=== PATIENT | female | born 1950 | race Two or more races ===

== ENCOUNTER 2020-03-24 11:33 | Outpatient (REF) | payer MEDICARE, SELFPAY ==
[2020-03-24 12:58] LABS: MANUAL DIFF FLAG NO
[2020-03-24 13:05] LABS: Basophils Percent Auto 0.5 % (0-2); Eosinophils Absolute Auto 0.1 X10*3/uL (0.0-0.4); Eosinophils Percent Auto 1.4 % (0-4); Hematocrit 41.4 % (37-47); Hemoglobin 13.3 g/dl (12.0-16.0); Imm Gran Abs Auto 0.01 X10*3/uL (0.00-0.03); Imm Gran Pct Auto 0.2 % (0.0-0.4); Lymphocytes Absolute Auto 1.7 X10*3/uL (1.2-4.9); Lymphocytes Percent Auto 29.2 % (20-40); Mean Corpuscular HGB Conc 32.1 g/dl (31.0-35.0); Mean Corpuscular Volume 93.2 fL (80-98); Mean Platelet Volume 9.9 fL (9.4-12.3); Monocytes Absolute Auto 0.4 X10*3/uL (0.1-1.2); Monocytes Percent Auto 7.3 % (2-11); Neutrophils Absolute Auto 3.6 X10*3/uL (2.0-8.3); Neutrophils Percent Auto 61.4 % (45-73); Platelet Count 260 X10*3/uL (160-400); Red Blood Count 4.44 X10*6/uL (4.20-5.50); Red Cell Distribution Width 13.7 % (11.0-16.0); White Blood Count 5.8 X10*3/uL (4.8-10.8)
[2020-03-24 14:37] LABS: TSH reflex Free T4 1.46 mIU/mL (0.32-4.0); Vitamin D 25-OH Total 37.1 ng/mL (>30)
== END 2020-03-24 11:34 | disposition home or self-care (01) ==
LOC: HO.LAB 11:33
PROVIDERS: PCP Internal Medicine; Visit Provider Internal Medicine
DX: E55.9 Vitamin D deficiency, unspecified (principal); E03.9 Hypothyroidism, unspecified; D75.89 Other specified diseases of blood and blood-forming organs
CPT/HCPCS: 36415; 82306; 84443; 85025

== ENCOUNTER 2020-08-30 08:05 | Outpatient (REF) | payer MEDICARE, SELFPAY ==
--- NOTE | ~2020-08-30 | MM_ITS ---
EXAMINATION: MM SCREENING DIGITAL BREAST TOMOSYNTHESIS, BILATERAL CLINICAL INFORMATION: Screening. Asymptomatic. COMPARISON: Mammography: August 24, 2019 and studies dating back to March 25, 2013 TECHNIQUE: Digital breast tomosynthesis is performed in both the craniocaudal and mediolateral oblique views along with computer-aided detection (CAD). Synthesized 2D images are generated from the tomosynthesis. FINDINGS: There are scattered areas of fibroglandular density (ACR BI-RADS breast composition Category b). There are no significant masses, abnormal calcifications, or other abnormalities. MM/MM tomosynthesis screening BI IMPRESSION: There are no significant changes from prior study. ASSESSMENT: BI-RADS 1: Negative RECOMMENDATION: Routine annual mammography screening. This patient's information was entered into a reminder system with a target due date for their next mammogram.
== END 2020-08-30 08:06 | disposition home or self-care (01) ==
LOC: HO.MAMMO 08:05
PROVIDERS: PCP Internal Medicine; Visit Provider Internal Medicine
DX: Z12.31 Encounter for screening mammogram for malignant neoplasm of breast (principal)
CPT/HCPCS: 77063; 77067

== ENCOUNTER 2020-11-03 08:43 | Outpatient (REF) | payer MEDICARE, SELFPAY ==
[2020-11-03 10:15] LABS: Alanine Aminotransferase 13 U/L (0-31); Albumin Level 4.4 g/dL (3.5-5.0); Alkaline Phosphatase 61 U/L (39-117); Anion Gap 11 (12-20); Aspartate Amino Transferase 21 U/L (5-31); Bilirubin Total 0.6 mg/dL (0.0-1.0); Blood Urea Nitrogen 21 mg/dL (9-16); Calcium 9.6 mg/dL (8.4-10.2); Carbon Dioxide 30 mmol/L (22-29); Chloride 104 mmol/L (96-108); Cholesterol 203 mg/dL; Estimated Glomerular Filt Rate > 60; Glucose Fasting 82 mg/dL (60-99); HDL Cholesterol 37 mg/dL; LDL Cholesterol Calculated 125 mg/dl; Sodium 141 mmol/L (135-145); Total Protein 6.7 g/dL (6.5-8.0); Triglycerides 208 mg/dL
[2020-11-03 10:20] LABS: Glucose Urine UA NEG (NEG); Leukocyte Esterase Urine NEG (NEG); Nitrite Urine POS (NEG); PH 6.5 (5.0-8.0); UACC Culture Trigger YES; Urine Blood 2+ (NEG); Urine Ketones NEG (NEG); Urine Protein NEG (NEG-TRACE)
[2020-11-03 10:21] LABS: Appearance Urine HAZY; Color Urine YELLOW
[2020-11-03 10:35] LABS: TSH reflex Free T4 1.26 uIU/mL (0.32-4.0)
[2020-11-03 11:15] LABS: Bacteria Urine 4+ /LPF; Squamous Epithelial Cell Urine TRACE /LPF; WBC Urine 0-2 /HPF (0-4)
[2020-11-09 16:26] LABS: Vitamin D 25-OH, D2 <4 ng/mL; Vitamin D 25-OH, D3 40 ng/mL; Vitamin D 25-OH, Total 40 ng/mL (30-100)
== END 2020-11-03 08:44 | disposition home or self-care (01) ==
LOC: HO.LAB 08:43
PROVIDERS: PCP Internal Medicine; Visit Provider Internal Medicine
DX: E78.00 Pure hypercholesterolemia, unspecified (principal); E55.9 Vitamin D deficiency, unspecified; E78.5 Hyperlipidemia, unspecified; E03.9 Hypothyroidism, unspecified; R30.0 Dysuria
CPT/HCPCS: 36415; 80053; 80061; 81001; 81003; 82306; 84443; 87086; 87088; 87186

== ENCOUNTER 2021-03-06 17:08 | Emergency (ER) | payer MEDICARE, SELFPAY ==
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
[2021-03-06 20:30] VITALS: BP 152/73; PULSE 63; RESP 18; TEMP 36.2; O2SAT 100; BMI 24.7
--- NOTE | 2021-03-06 20:32 | PC.NURSE ---
PT CURRENTLY SOAKING HAND IN WARM WATER WITH PEROXIDE PER PROVIDER.
== END 2021-03-06 21:52 | disposition home or self-care (01) ==
PROVIDERS: Emergency Provider Emergency Medicine Emergency Medical Services
DX: B36.9 Superficial mycosis, unspecified (principal); T59.811A Toxic effect of smoke, accidental (unintentional), initial encounter; M79.641 Pain in right hand; T23.201A Burn of second degree of right hand, unspecified site, initial encounter; T31.0 Burns involving less than 10% of body surface; Y92.009 Unspecified place in unspecified non-institutional (private) residence as the place of occurrence of the external cause; X19.XXXA Contact with other heat and hot substances, initial encounter; Y93.9 Activity, unspecified; Y92.9 Unspecified place or not applicable; Y99.9 Unspecified external cause status; Z79.899 Other long term (current) drug therapy
CPT/HCPCS: 99283

== ENCOUNTER 2021-03-12 09:13 | Outpatient (REF) | payer MEDICARE, SELFPAY ==
[2021-03-12 10:36] LABS: Alanine Aminotransferase 12 U/L (0-31); Albumin Level 4.4 g/dL (3.5-5.0); Alkaline Phosphatase 71 U/L (39-117); Anion Gap 10 (12-20); Aspartate Amino Transferase 21 U/L (5-31); Bilirubin Total 0.4 mg/dL (0.0-1.0); Blood Urea Nitrogen 23 mg/dL (9-16); Calcium 8.9 mg/dL (8.4-10.2); Carbon Dioxide 29 mmol/L (22-29); Chloride 106 mmol/L (96-108); Cholesterol 171 mg/dL; Estimated Glomerular Filt Rate > 60; Glucose Fasting 78 mg/dL (60-99); HDL Cholesterol 42 mg/dL; LDL Cholesterol Calculated 115 mg/dl; Potassium 4.1 mmol/L (3.3-5.1); Sodium 141 mmol/L (135-145); Total Protein 6.5 g/dL (6.5-8.0); Triglycerides 71 mg/dL
[2021-03-12 11:18] LABS: Thyroid Stimulating Hormone 2.59 uIU/mL (0.32-4.0)
[2021-03-12 11:31] LABS: TSH reflex Free T4 2.41 uIU/mL (0.32-4.0)
== END 2021-03-12 09:14 | disposition home or self-care (01) ==
LOC: HO.LAB 09:13
PROVIDERS: PCP Internal Medicine; Visit Provider Internal Medicine
DX: K21.9 Gastro-esophageal reflux disease without esophagitis (principal); E03.9 Hypothyroidism, unspecified; E78.5 Hyperlipidemia, unspecified
CPT/HCPCS: 36415; 80053; 80061; 84443

== ENCOUNTER 2021-05-02 15:13 | Outpatient (REF) | payer MEDICARE, SELFPAY ==
--- NOTE | ~2021-05-02 | XR_ITS ---
EXAMINATION: XR KNEE, LEFT CLINICAL INFORMATION: Left knee pain. COMPARISON: None TECHNIQUE: Three views of the left knee. FINDINGS: Mild diffuse osteopenia is noted. Mild asymmetric decreased joint space is noted at the medial compartment consistent with mild osteoarthrosis. Small suprapatellar effusion is noted. The lateral and the patellofemoral compartments are unremarkable. XR/XR knee LT 3V IMPRESSION: Mild osteoarthrosis at the medial compartment of the left knee.
== END 2021-05-02 15:14 | disposition home or self-care (01) ==
LOC: HO.XRAY 15:13
PROVIDERS: PCP Internal Medicine; Visit Provider Internal Medicine
DX: M25.562 Pain in left knee (principal)
CPT/HCPCS: 73562

== ENCOUNTER 2021-07-25 09:23 | Outpatient (REF) | payer MEDICARE, SELFPAY ==
[2021-07-25 09:35] LABS: MANUAL DIFF FLAG NO
[2021-07-25 10:00] LABS: Basophils Percent Auto 0.6 % (0-2); Eosinophils Absolute Auto 0.1 X10*3/uL (0.0-0.4); Eosinophils Percent Auto 1.9 % (0-4); Hematocrit 36.9 % (37.0-47.0); Hemoglobin 11.5 g/dl (12.0-16.0); Imm Gran Abs Auto 0.01 X10*3/uL (0.00-0.03); Imm Gran Pct Auto 0.2 % (0.0-0.4); Lymphocytes Absolute Auto 1.7 X10*3/uL (1.2-4.9); Lymphocytes Percent Auto 31.4 % (20-40); Mean Corpuscular HGB Conc 31.2 g/dl (31.0-35.0); Mean Corpuscular Hemoglobin 27.7 pg (27.0-33.0); Mean Corpuscular Volume 88.9 fL (80.0-98.0); Monocytes Absolute Auto 0.4 X10*3/uL (0.1-1.2); Monocytes Percent Auto 7.8 % (2-11); Neutrophils Absolute Auto 3.1 x10*3/uL (2.0-8.3); Neutrophils Percent Auto 58.1 % (45-73); Platelet Count 239 X10*3/uL (160-400); Red Blood Count 4.15 X10*6/uL (4.20-5.50); White Blood Count 5.3 X10*3/uL (4.8-10.8)
[2021-07-25 10:34] LABS: Alanine Aminotransferase 12 U/L (0-31); Albumin Level 4.3 g/dL (3.5-5.0); Alkaline Phosphatase 62 U/L (39-117); Anion Gap 10 (12-20); Aspartate Amino Transferase 21 U/L (5-31); Bilirubin Total 0.6 mg/dL (0.0-1.0); Blood Urea Nitrogen 22 mg/dL (9-16); Calcium 9.2 mg/dL (8.4-10.2); Carbon Dioxide 31 mmol/L (22-29); Chloride 106 mmol/L (96-108); Cholesterol 207 mg/dL; Estimated Glomerular Filt Rate > 60; Glucose Fasting 86 mg/dL (60-99); HDL Cholesterol 35 mg/dL; LDL Cholesterol Calculated 140 mg/dl; Sodium 143 mmol/L (135-145); Total Protein 6.8 g/dL (6.5-8.0); Triglycerides 161 mg/dL
[2021-07-25 10:56] LABS: Thyroid Stimulating Hormone 3.81 uIU/mL (0.32-4.0)
[2021-07-30 14:16] LABS: Vitamin D 25-OH, D2 <4 ng/mL; Vitamin D 25-OH, D3 38 ng/mL; Vitamin D 25-OH, Total 38 ng/mL (30-100)
== END 2021-07-25 09:24 | disposition home or self-care (01) ==
LOC: HO.LAB 09:23
PROVIDERS: PCP Internal Medicine; Visit Provider Internal Medicine
DX: L98.9 Disorder of the skin and subcutaneous tissue, unspecified (principal); E78.5 Hyperlipidemia, unspecified; E03.9 Hypothyroidism, unspecified; E55.9 Vitamin D deficiency, unspecified
CPT/HCPCS: 36415; 80053; 80061; 82306; 84443; 85025

== ENCOUNTER 2021-08-02 08:14 | Outpatient (REF) | payer MEDICARE, SELFPAY | END 2021-08-02 08:15 | disposition home or self-care (01) | LOC: HO.MAMMO 08:14 | PROVIDERS: PCP Internal Medicine; Visit Provider Internal Medicine | DX: Z13.89 Encounter for screening for other disorder (principal) ==

== ENCOUNTER 2021-08-06 14:44 | Outpatient (REF) | payer MEDICARE, SELFPAY | END 2021-08-06 14:45 | disposition home or self-care (01) | LOC: HO.LAB 14:44 | PROVIDERS: PCP Internal Medicine; Visit Provider Obstetrics & Gynecology | DX: N90.89 Other specified noninflammatory disorders of vulva and perineum (principal); L98.9 Disorder of the skin and subcutaneous tissue, unspecified | CPT/HCPCS: 56605; 88305; 88312; 99212 ==

== ENCOUNTER → 2021-08-20 11:54 | Outpatient (BNVA) | payer MEDICARE, SELFPAY | PROVIDERS: Visit Provider Obstetrics & Gynecology | DX: Z13.89 Encounter for screening for other disorder (principal) | CPT/HCPCS: Q3014 ==

== ENCOUNTER 2021-09-11 09:22 | Outpatient (REF) | payer MEDICARE, SELFPAY ==
--- NOTE | ~2021-09-11 | MM_ITS ---
EXAMINATION: MM SCREENING DIGITAL BREAST TOMOSYNTHESIS, BILATERAL CLINICAL INFORMATION: Screening. Asymptomatic. The lifetime risk of breast cancer based on the Tyrer-Cuzick Model is 2.%. COMPARISON: Mammography: August 30, 2020 and studies dating back to April 13, 2010 TECHNIQUE: Digital breast tomosynthesis is performed in both the craniocaudal and mediolateral oblique views along with computer-aided detection (CAD). Synthesized 2D images are generated from the tomosynthesis. FINDINGS: There are scattered areas of fibroglandular density (ACR BI-RADS breast composition Category b). There are no significant masses, abnormal calcifications, or other abnormalities. MM/MM tomosynthesis screening BI IMPRESSION: There are no significant changes from prior study. ASSESSMENT: BI-RADS 1: Negative RECOMMENDATION: Routine annual mammography screening. This patient's information was entered into a reminder system with a target due date for their next mammogram.
== END 2021-09-11 09:23 | disposition home or self-care (01) ==
LOC: HO.MAMMO 09:22
PROVIDERS: PCP Internal Medicine; Visit Provider Internal Medicine
DX: Z12.31 Encounter for screening mammogram for malignant neoplasm of breast (principal)
CPT/HCPCS: 77063; 77067

== ENCOUNTER 2022-01-29 08:21 | Outpatient (REF) | payer OTHER, SELFPAY ==
--- NOTE | ~2022-01-29 | MM_ITS ---
EXAMINATION: BONE DENSITOMETRY CLINICAL INDICATION: Age-related osteoporosis without current pathological fracture. COMPARISON: Previous BD dated 12/31/2019 and baseline BD dated 09/16/2007. TECHNIQUE: Using a [employer] DXA System (software version: 13.1) manufactured by [employer], dual-energy x-ray absorptiometry was performed of the lumbar spine and left hip. The images are of good technical quality. Summary results are attached. FINDINGS: AP SPINE L1-L4: Current: BMD 0.888 g/cm2, Z-score -0.5, T-score -2.4, osteopenia, 0.3% increase from previous, 4.7% increase from baseline (<5% change is not significant). Prior: BMD 0.885 g/cm2. Baseline: BMD 0.848 g/cm2. LEFT FEMUR, NECK: Current: BMD 0.725 g/cm2, Z-score -0.4, T-score -2.3, osteopenia. Prior: BMD 0.712 g/cm2. Baseline: BMD 0.730 g/cm2. LEFT FEMUR, TOTAL: Current: BMD 0.796 g/cm2, Z-score 0.0, T-score -1.7, osteopenia, 0.0% no change from previous, 1.6% decrease from baseline (<5% change is not significant). Prior: BMD 0.796 g/cm2. Baseline: BMD 0.809 g/cm2. IDENTIFIED RISK FACTORS: Early menopause, secondary osteoporosis, hysterectomy, bilateral oophorectomy, family history (parental hip fracture), osteoporosis. HISTORY OF FRACTURE: None listed. MEDICATIONS: Calcium supplements or multivitamin, vitamin D, bisphosphonate. MM/XR DEXA axial skeleton IMPRESSION: 1. DIAGNOSIS: Osteopenia based on the lowest T-score value of -2.4 in the lumbar spine applying World Health Organization criteria. 2. 10-YEAR FRACTURE RISK PREDICTION, FRAX: Major osteoporotic fracture (clinical spine, forearm, hip or shoulder) 12.8%. Hip fracture 4.0%. 3. Treatment Recommendations: NOF guidelines recommend consideration for treatment in postmenopausal women and men age 50 and older presenting with the following: -A hip or vertebral (clinical or morphometric) fracture. -T-score less than or equal to -2.5 at the femoral neck or spine after appropriate evaluation to exclude secondary causes. -Low bone mass at the hip or spine and a 10-year fracture probability by FRAX of greater than or equal to 3% for hip fracture or greater than or equal to 20% for major osteoporotic fracture based on the [place] adapted WHO algorithm. 4. Other Recommendations: All treatment decisions require clinical judgment and consideration of individual patient factors, including patient preferences, comorbidities, previous drug use, risk factors not captured in the FRAX model (e.g. frailty, falls, vitamin D deficiency, increased bone turnover, interval significant decline in bone density) and possible under or overestimation of fracture risk by FRAX. Additional medical evaluation for secondary cause of low bone mineral density may be appropriate. FUTURE SCAN RECOMMENDATION: People with diagnosed cases of osteoporosis or at high risk for fracture should have regular bone mineral density tests. For patients eligible for Medicare, routine testing is allowed once every 2 years. The testing frequency can be increased to one year for patients who have rapidly progressing disease, those who are receiving or discontinuing medical therapy to restore bone mass, or have additional risk factors.
== END 2022-01-29 08:22 | disposition home or self-care (01) ==
LOC: HO.MAMMO 08:21
PROVIDERS: PCP Internal Medicine; Visit Provider Internal Medicine
DX: M81.0 Age-related osteoporosis without current pathological fracture (principal); Z78.0 Asymptomatic menopausal state; Z90.722 Acquired absence of ovaries, bilateral; Z79.83 Long term (current) use of bisphosphonates
CPT/HCPCS: 77080

== ENCOUNTER 2022-02-14 08:53 | Outpatient (REF) | payer OTHER, SELFPAY ==
--- NOTE | ~2022-02-14 | US_ITS ---
EXAMINATION: US ABDOMEN COMPLETE CLINICAL INFORMATION: Generalized abdominal pain. COMPARISON: CT abdomen and pelvis 01/02/2018. TECHNIQUE: Real-time imaging of the abdominal viscera. FINDINGS: PANCREAS: Normal. ABDOMINAL AORTA: The proximal, mid, and distal segments are normal in caliber. INFERIOR VENA CAVA: Visualized portions are normal. LIVER: Normal. The liver is normal in size. The liver contour is normal. Parenchymal echogenicity is normal. No focal hepatic lesion. There is no intrahepatic biliary duct dilatation seen. GALLBLADDER: Negative sonographic Hollins sign. The gallbladder is physiologically distended without evidence of stones, sludge, polyps, or pericholecystic fluid. COMMON BILE DUCT: Normal in caliber measuring 0.2 cm in diameter. RIGHT KIDNEY: Normal. No hydronephrosis. No renal calculi or focal parenchymal lesions. The kidney measures 8.8 cm in maximum dimension. LEFT KIDNEY: Normal. No hydronephrosis. No renal calculi or focal parenchymal lesions. The kidney measures 8.4 cm in maximum dimension. SPLEEN: Normal. The spleen measures 8.9 cm in maximum dimension. FREE FLUID: None. US/US abdomen complete IMPRESSION: Unremarkable abdominal ultrasound.
== END 2022-02-14 08:54 | disposition home or self-care (01) ==
LOC: HO.US 08:53
PROVIDERS: Visit Provider Internal Medicine
DX: R10.84 Generalized abdominal pain (principal)
CPT/HCPCS: 76700

== ENCOUNTER 2022-04-15 09:08 | Outpatient (REF) | payer OTHER, SELFPAY ==
[2022-04-15 09:22] LABS: MANUAL DIFF FLAG NO
[2022-04-15 10:40] LABS: Appearance Urine Cloudy; Color Urine Yellow; Glucose Urine UA Negative (Negative); Leukocyte Esterase Urine Small (1+) (Negative); Nitrite Urine Positive (Negative); PH 5.5 (5.0-9.0); Specific Gravity - Urine 1.025 (1.005-1.025); UMIC TRIGGER UACC YES; Urine Blood Moderate (2+) (Negative); Urine Ketones Trace mg/dL (Negative); Urine Protein Trace mg/dL (Neg-Trace)
[2022-04-15 10:46] LABS: Bacteria Urine 4+ (None Seen); Hyaline Casts Urine 0-2 /LPF (0-2); UACC Culture Trigger YES
[2022-04-15 10:48] LABS: Basophils Percent Auto 0.8 % (0-2); Eosinophils Absolute Auto 0.1 X10*3/uL (0.0-0.4); Eosinophils Percent Auto 1.4 % (0-4); Hematocrit 37.3 % (37.0-47.0); Hemoglobin 11.5 g/dl (12.0-16.0); Imm Gran Abs Auto 0.01 X10*3/uL (0.00-0.03); Imm Gran Pct Auto 0.2 % (0.0-0.4); Lymphocytes Absolute Auto 2.1 X10*3/uL (1.2-4.9); Lymphocytes Percent Auto 41.7 % (20-40); Mean Corpuscular HGB Conc 30.8 g/dl (31.0-35.0); Mean Corpuscular Hemoglobin 26.3 pg (27.0-33.0); Mean Corpuscular Volume 85.4 fL (80.0-98.0); Mean Platelet Volume 10.3 fL (9.4-12.3); Monocytes Absolute Auto 0.4 X10*3/uL (0.1-1.2); Monocytes Percent Auto 8.1 % (2-11); Neutrophils Absolute Auto 2.4 x10*3/uL (2.0-8.3); Neutrophils Percent Auto 47.8 % (45-73); Platelet Count 240 X10*3/uL (160-400); Red Blood Count 4.37 X10*6/uL (4.20-5.50); Red Cell Distribution Width 17.2 % (11.0-16.0); White Blood Count 5.1 X10*3/uL (4.8-10.8)
[2022-04-15 11:06] LABS: Alanine Aminotransferase 18 U/L (0-31); Albumin Level 4.4 g/dL (3.5-5.0); Alkaline Phosphatase 67 U/L (39-117); Anion Gap 13 (12-20); Aspartate Amino Transferase 24 U/L (5-31); Bilirubin Total 0.7 mg/dL (0.0-1.0); Blood Urea Nitrogen 24 mg/dL (9-16); Calcium 9.3 mg/dL (8.4-10.2); Carbon Dioxide 27 mmol/L (22-29); Chloride 105 mmol/L (96-108); Cholesterol 181 mg/dL; Estimated Glomerular Filt Rate > 60; Glucose Fasting 84 mg/dL (60-99); HDL Cholesterol 37 mg/dL; LDL Cholesterol Calculated 115 mg/dl; Sodium 141 mmol/L (135-145); Total Protein 6.9 g/dL (6.5-8.0); Triglycerides 148 mg/dL
[2022-04-15 11:42] LABS: Thyroid Stimulating Hormone 3.62 uIU/mL (0.32-4.0); Vitamin D 25-OH Total 44.5 ng/mL (>30)
== END 2022-04-15 09:09 | disposition home or self-care (01) ==
LOC: HO.LAB 09:08
PROVIDERS: PCP Internal Medicine; Visit Provider Internal Medicine
DX: D64.9 Anemia, unspecified (principal); E55.9 Vitamin D deficiency, unspecified; E03.9 Hypothyroidism, unspecified; E78.5 Hyperlipidemia, unspecified
CPT/HCPCS: 36415; 80053; 80061; 81001; 82306; 84443; 85025; 87086; 87088; 87186

== ENCOUNTER 2022-09-17 09:25 | Outpatient (REF) | payer OTHER, SELFPAY ==
--- NOTE | ~2022-09-17 | MM_ITS ---
EXAMINATION: MM SCREENING DIGITAL BREAST TOMOSYNTHESIS, BILATERAL CLINICAL INFORMATION: Screening. Asymptomatic. The lifetime risk of breast cancer based on the Tyrer-Cuzick Model is 5.2%. COMPARISON: Mammography: September 11, 2021 and studies dating back to May 10, 2014 TECHNIQUE: Digital breast tomosynthesis is performed in both the craniocaudal and mediolateral oblique views along with computer-aided detection (CAD). Synthesized 2D images are generated from the tomosynthesis. FINDINGS: There are scattered areas of fibroglandular density (ACR BI-RADS breast composition Category b). There are no significant masses, abnormal calcifications, or other abnormalities. MM/MM tomosynthesis screening BI IMPRESSION: No significant changes ASSESSMENT: BI-RADS 1: Negative RECOMMENDATION: Routine annual mammography screening. This patient's information was entered into a reminder system with a target due date for their next mammogram.
== END 2022-09-17 09:26 | disposition home or self-care (01) ==
LOC: HO.MAMMO 09:25
PROVIDERS: PCP Internal Medicine; Visit Provider Internal Medicine
DX: Z12.31 Encounter for screening mammogram for malignant neoplasm of breast (principal)
CPT/HCPCS: 77063; 77067

== ENCOUNTER 2023-03-04 07:29 | Outpatient (REF) | payer OTHER, SELFPAY ==
[2023-03-04 09:01] LABS: Alanine Aminotransferase 13 U/L (0-31); Albumin Level 4.3 g/dL (3.5-5.0); Alkaline Phosphatase 55 U/L (39-117); Anion Gap 11 (12-20); Aspartate Amino Transferase 24 U/L (5-31); Bilirubin Total 0.6 mg/dL (0.0-1.0); Blood Urea Nitrogen 23 mg/dL (9-16); Calcium 9.7 mg/dL (8.4-10.2); Carbon Dioxide 26 mmol/L (22-29); Chloride 108 mmol/L (96-108); Cholesterol 201 mg/dL (<200); Estimated Glomerular Filt Rate > 60; Glucose Fasting 84 mg/dL (60-99); HDL Cholesterol 35 mg/dL (>40); LDL Cholesterol Calculated 134 mg/dL (<100); Potassium 3.9 mmol/L (3.3-5.1); Sodium 141 mmol/L (135-145); Total Protein 6.9 g/dL (6.5-8.0); Triglycerides 162 mg/dL (<150)
[2023-03-04 09:24] LABS: Thyroid Stimulating Hormone 4.37 uIU/mL (0.32-4.0); Vitamin D 25-OH Total 41.9 ng/mL (>30)
== END 2023-03-04 07:30 | disposition home or self-care (01) ==
LOC: HO.LAB 07:29
PROVIDERS: PCP Internal Medicine; Visit Provider Internal Medicine
DX: E03.9 Hypothyroidism, unspecified (principal); E55.9 Vitamin D deficiency, unspecified; E78.5 Hyperlipidemia, unspecified
CPT/HCPCS: 36415; 80053; 80061; 82306; 84443

== ENCOUNTER 2023-03-17 09:42 | Outpatient (AMB) | payer OTHER, SELFPAY ==
--- NOTE | 2023-03-17 09:43 | A.OFFVIS_ITS ---
Intake Vital Signs 03/17/23 09:44 Height 5 ft 2 in Weight 126 lb BMI 23.0 BP 118/62 Blood Pressure Location Lt brachial Position Sitting Pulse 70 Pulse Source Pulse Oximeter Pulse Oximetry (%) 99 Oxygen Delivery Method Room Air Intake Visit Reasons: SWV [id number] Allergies ibuprofen Allergy (Intermediate, Verified 03/17/23 10:10) pruritus nitrofurantoin Allergy (Mild, Verified 03/17/23 10:10) pruritus gabapentin Adverse Reaction (Intermediate, Verified 03/17/23 10:10) loopiness Medication List - Last Reconciled 03/17/23 by PILAR Matamoros amitriptyline 25 mg PO BEDTIME 90 days calcium carbonate 600 mg PO BID 90 days cholecalciferol (vitamin D3) 25 mcg PO DAILY 90 days levothyroxine 50 mcg PO DAILY 90 days omeprazole 20 mg PO DAILY 90 days pravastatin 40 mg PO BEDTIME 90 days triamcinolone acetonide 0.1% 1 appl topical BID 30 days HPI HPI Comments History of Present Illness Details 71-year-old female the history of dyslip idemia GERD and hypothyroidism presents today for subsequent Medicare wellness exam. Patient is up-to-date on mammogram was completed in August 2022, DEXA scan done January 2022, colonoscopy last completed in 2016. Patient sees Dr. Johnson for regular eye exams. Patient up-to-date with recommended immunizations. Patient requesting a new referral to dermatology for skin lesions, referral entered. Patient also reports fatigue and hair loss will follow-up on thyroid function and order CBC in addition to further evaluate for anemia. [place] of care was reviewed with patient patient was provided with a written screening schedule. Healthcare proxy is forms reviewed with patient, patient encouraged to return completed forms to office be scanned into chart. 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 Mother Diabetes Chronic mental illness Alzheimers disease Paternal Aunt Cancer Family/Other FH: mental illness Social History Housing: Apartment Alcohol intake: never Patient Tobacco Use Status: Never used Tobacco e-Cigarette/Vaping Use: Never Used Second Hand Smoke Exposure: No service: No Current occupational status: unemployed Cognitive needs: No Hearing needs: No Vision needs: No Female Reproductive History Menstrual Age of Menarche: 13 Questionnaire Medicare Wellness Checkup [age] What gender do you identify with?: female During the past 4 weeks, how much have you been bothered by emotional problems such as feeling anxious, depressed, irritable, sad or downhearted, and blue?: moderately During the past 4 weeks, how much bodily pain have you generally had?: moderate pain Mini Mental State Exam (MMSE) Orientation What is the (year) (season) (date) (day) (month)?: year, season, date, day and month Score Score: 5 Activity of Daily Living Bathing - sponge bath, tub bath or shower: receives no assistance (gets in/out by self, if usual bathing means Dressing - getting clothes from closets & drawers, including inner/outer garments & fasteners.: gets clothes & gets completely dressed without help Toileting - going to the 'toilet room' for urine/bowel elimination & cleaning self/arranging clothes: goes to toilet room, cleans self, arranges clothes without help Transfer: moves in & out of bed and chair without help (may use support object) Continence: controls urination/bowel movements completely by self Feeding: feeds self without help Total Score: 0 Information obtained from: patient Using telephone: independent Traveling: independent Shopping: independent Preparing meals: independent Housework: independent Taking medicine: independent Managing money: independent PHQ-9 Over the last 2 weeks, how often have you been bothered by any of the following problems? 1. Little interest or pleasure in doing things: several days 2. Feeling down, depressed, or hopeless: several days 3. Trouble falling or staying asleep, or sleeping too much: more than half the days 4. Feeling tired or having little energy: not at all 5. Poor appetite or overeating: not at all 6. Feeling bad about yourself - or that you are a failure or have let yourself or your family down: not at all 7. Trouble concentrating on things, such as reading the newspaper or watching television: not at all 8. Moving or speaking so slowly that other people could have noticed. Or the opposite - being so fidgety or restless that you have been moving around a lot more than usual: not at all 9. Thoughts that you would be better off or of hurting yourself in some way: not at all Total score: 4 Depression Screening Interpretation: Negative 12215 - PHQ-9 Billing: Yes Source: Developed by Drs. Zack Peñaloza, Gita Birch, Paulie Womack and colleagues, with an educational mark from [employer]. Physical Exam Vital Signs: Last Vital Signs Pulse 70 03/17/23 09:44 BP 118/62 03/17/23 09:44 Pulse Ox 99 03/17/23 09:44 Oxygen Delivery Method Room Air 03/17/23 09:44 BMI result Body Mass Index 23.0 Const General: cooperative and no acute distress Orientation/consciousness: patient oriented x3 HEENT Ears: other (whisper test: pass) Neuro General: patient oriented x3 Gait exam (Neuro): Normal gait present Coordination: tandem gait normal and Romberg test negative Assessment & Plan Assessment & Plan (1) Skin lesion: Code(s): L98.9 - Disorder of the skin and subcutaneous tissue, unspecified Plan: Referral entered to dermatology (2) Medicare annual wellness visit, subsequent: Code(s): Z00.00 - Encounter for general adult medical examination without abnormal findings Plan: Follow-up in 1 year for subsequent annual well visit. Orders: Orders Complete Blood Count Auto Diff Today R53.83 - Other fatigue TSH reflex Free T4 4 Weeks E03.9 - Hypothyroidism, unspecified Referrals Dermatology Referral L98.9 - Disorder of the skin and subcutaneous tissue, unspecified Medications: Refilled levothyroxine 50 mcg PO DAILY 90 tabs 3RF 90 days omeprazole 20 mg PO DAILY 90 caps 1RF 90 days pravastatin 40 mg PO BEDTIME 90 tabs 1RF 90 days M81.0 - Age-related osteoporosis without current pathological fracture amitriptyline 25 mg PO BEDTIME 90 tabs 3RF 90 days G47.00 - Insomnia, unspecified Quality Reporting (2019) Depression/Bipolar (159/160/161/177) PHQ-9: Total score: 4 Coding Level of Care Code Medicare Subsequent (G0439) Diagnoses Skin lesion L98.9 Medicare annual wellness visit, subsequent Z00.00 CPT Codes Advance Care Planning - Time spent: 1-15 minutes, not on file ([id number]) Advance Care Planning Forms completed: Health Care Proxy and MOLST Time spent: 1-15 minutes, not on file Actual minutes spent: 2 Did not discuss due to Cultural/Spiritual beliefs: No
[2023-03-17 09:44] VITALS: BP 118/62; PULSE 70; O2SAT 99; BMI 23.0
== END 2023-03-17 10:50 | disposition home or self-care (01) ==
PROVIDERS: Visit Provider Nurse Practitioner Family
DX: L98.9 Disorder of the skin and subcutaneous tissue, unspecified (principal); Z00.00 Encounter for general adult medical examination without abnormal findings
CPT/HCPCS: 1124F; G0439

== ENCOUNTER 2023-09-30 09:59 | Outpatient (REF) | payer OTHER, SELFPAY | END 2023-09-30 10:00 | disposition home or self-care (01) | LOC: HO.MAMMO 09:59 | PROVIDERS: PCP Internal Medicine; Visit Provider Internal Medicine | DX: Z12.31 Encounter for screening mammogram for malignant neoplasm of breast (principal) | CPT/HCPCS: 77063; 77067 ==

== ENCOUNTER → 2023-09-30 10:00 | Outpatient (BNV) | payer OTHER, SELFPAY | PROVIDERS: PCP Internal Medicine; Visit Provider Radiology Diagnostic Radiology | DX: Z12.31 Encounter for screening mammogram for malignant neoplasm of breast (principal) | CPT/HCPCS: 77063; 77067 ==

== ENCOUNTER 2023-10-21 08:36 | Outpatient (REF) | payer OTHER, SELFPAY ==
[2023-10-21 08:53] LABS: MANUAL DIFF FLAG NO
[2023-10-21 09:05] LABS: Basophils Percent Auto 0.6 % (0-2); Eosinophils Absolute Auto 0.1 X10*3/uL (0.0-0.4); Eosinophils Percent Auto 1.9 % (0-4); Hematocrit 36.4 % (37.0-47.0); Hemoglobin 11.8 g/dl (12.0-16.0); Lymphocytes Percent Auto 43.6 % (20-40); Mean Corpuscular HGB Conc 32.4 g/dl (31.0-35.0); Mean Corpuscular Hemoglobin 28.2 pg (27.0-33.0); Mean Corpuscular Volume 87.1 fL (80.0-98.0); Mean Platelet Volume 9.1 fL (9.4-12.3); Monocytes Absolute Auto 0.4 X10*3/uL (0.1-1.2); Neutrophils Absolute Auto 2.1 x10*3/uL (2.0-8.3); Neutrophils Percent Auto 45.9 % (45-73); Platelet Count 224 X10*3/uL (160-400); Red Blood Count 4.18 X10*6/uL (4.20-5.50); Red Cell Distribution Width 20.1 % (11.0-16.0); White Blood Count 4.6 X10*3/uL (4.8-10.8)
[2023-10-21 10:19] LABS: TSH reflex Free T4 1.15 uIU/mL (0.32-4.0)
== END 2023-10-21 08:37 | disposition home or self-care (01) ==
LOC: HO.LAB 08:36
PROVIDERS: PCP Internal Medicine; Visit Provider Nurse Practitioner Family
DX: R53.83 Other fatigue (principal); E03.9 Hypothyroidism, unspecified
CPT/HCPCS: 36415; 84443; 85025

== ENCOUNTER 2023-10-27 15:46 | Outpatient (AMB) | payer OTHER, SELFPAY ==
[2023-10-27 15:49] VITALS: BP 112/60; BMI 21.6
--- NOTE | 2023-10-27 15:49 | MHC.PC.OV ---
Vital Signs 10/27/23 15:49 Height 5 ft 2 in Weight 118 lb BMI 21.6 BP 112/60 Blood Pressure Location Lt brachial Position Sitting Intake Visit Reasons: 3 month f/u Intake Note: Patient here for a 3 month follow up Delivery Specialist Required: No Accompanied by: Daughter Allergies ibuprofen Allergy (Intermediate, Verified 10/27/23 16:12) pruritus nitrofurantoin Allergy (Mild, Verified 10/27/23 16:12) pruritus gabapentin Adverse Reaction (Intermediate, Verified 10/27/23 16:12) loopiness Medication List - Last Reconciled 10/27/23 by Margarita Jimenez MD acetaminophen 1,000 mg (2 x 500 mg) PO Q6H PRN 30 days amitriptyline 25 mg PO BEDTIME 90 days calcium carbonate 600 mg PO BID 90 days cholecalciferol (vitamin D3) 25 mcg PO DAILY 90 days levothyroxine 50 mcg PO DAILY 90 days omeprazole 20 mg PO DAILY 90 days pravastatin 40 mg PO BEDTIME 90 days Tobacco use date assessed: 10/27/23 Fall risk assessment: No Falls in past year Last assessed Fall Risk: 10/27/23 Dental Screening Dental Screen Date: 10/27/23 Did you have a dental visit in the last 12 months?: Yes Did you have a dental problem in the last 6 months where you did not have access to dental care?: No Was dental information given to patient?: Patient has dentist HPI HPI Comments History of Present Illness Details This is a 73-year-old female with mild major depression, dyslipidemia, hypothyroidism and GERD that comes accompanied by daughter for follow-up on her conditions. TSH normal. Hemoglobin mildly low of 11.8. Was diagnosed with anemia in June 2023 in [place] and was taking ferrous sulfate but stopped taking it at the beginning of September. CBC will be repeated. Depression and insomnia has not been well controlled with amitriptyline anymore. I will start her on venlafaxine at bedtime. Lipid panel will be repeated. GERD stable with PPIs. No chest pain or shortness of breath. Some dry cough that has been present for few months. No fever. [facility] Medical History (Updated 10/27/23 @ 16:22 by Margarita Jimenez MD) Left knee pain Medicare annual wellness visit, initial Mild recurrent major depression Dyslipidemia Skin lesion Insomnia Age-related osteoporosis without current pathological fracture Hypovitaminosis D GERD (gastroesophageal reflux disease) Hypothyroidism Surgical History History of lumbar surgery History of total abdominal hysterectomy Family History Father No problems noted. Mother Diabetes Chronic mental illness Alzheimers disease Paternal Aunt Cancer Family/Other FH: mental illness Social History Housing: Apartment Alcohol intake: never Patient Tobacco Use Status: Never used Tobacco e-Cigarette/Vaping Use: Never Used Second Hand Smoke Exposure: No service: No Current occupational status: unemployed Cognitive needs: No Hearing needs: No Vision needs: No Female Reproductive History Menstrual Age of Menarche: 13 Questionnaire PHQ-9 Over the last 2 weeks, how often have you been bothered by any of the following problems? 1. Little interest or pleasure in doing things: not at all 2. Feeling down, depressed, or hopeless: several days 3. Trouble falling or staying asleep, or sleeping too much: more than half the days 4. Feeling tired or having little energy: more than half the days 5. Poor appetite or overeating: not at all 6. Feeling bad about yourself - or that you are a failure or have let yourself or your family down: not at all 7. Trouble concentrating on things, such as reading the newspaper or watching television: several days 8. Moving or speaking so slowly that other people could have noticed. Or the opposite - being so fidgety or restless that you have been moving around a lot more than usual: not at all 9. Thoughts that you would be better off or of hurting yourself in some way: not at all Total score: 6 Source: Developed by Drs. Zack Peñaloza, Gita Birch, Paulie Womack and colleagues, with an educational mark from [employer] Thrive Questionnaire Date Thrive assessed: 10/27/23 I am a: Patient What is your living situation today?: I have a steady place to live Within the past 12 months, did the food you bought not last and you didn't have the money to get more?: Never true Within the past 12 months, did you worry whether your food would run out before you got money to buy more?: Never true Do you have trouble paying for medicines?: No Do you have trouble getting transportation to medical appointments?: No Do you have trouble paying your heating and electricity bill?: No Do you have trouble taking care of your child, family member or friend?: No Do you have trouble with day-to-day activities such as bathing, preparing meals, shopping, managing finances, etc.?: No Are you currently unemployed and looking for a job?: No Are you interested in more education?: No Please select the resources that you would like help with: None Currently or been in a relationship where the following occur: no concerns reported THRIVE Score: 0 AUDIT C Alcohol Use Questionnaire (AUDIT-C) 1. How often do you have a drink containing alcohol?: Never Total Score: 0 FADIA-7 AMB Questionnaire FADIA-7 Date FADIA - 7 assessed: 10/27/23 Feeling nervous, anxious, or on edge: 1 = Several days Not being able to stop or control worryin = Not at all Worrying too much about different things: 1 = Several days Trouble relaxin = Not at all Being so restless that it is hard to sit still: 0 = Not at all Becoming easily annoyed or irritable: 2 = More than half the days Feeling afraid as if something awful might happen: 0 = Not at all Total FADIA-7 score (0-4 normal; 5-9 mild; 10-14 moderate; 15-21 severe): 4 Source: Developed by Drs. Zack Peñaloza, Gita Birch, Paulie Womack and colleagues, with an educational mark from [employer] Review of Systems Const All systems reviewed & are unremarkable except as noted in HPI and below Eyes Reports no additional complaints, Denies change in vision and Denies other visual disturbances Card Denies chest pain at rest, Denies chest pain with activity, Denies edema, Denies irregular heart rhythm, Denies claudication, Denies dyspnea, Denies dyspnea on exertion, Denies orthopnea, Denies paroxysmal nocturnal dyspnea and Denies slow heart rate Resp Reports cough, Denies dyspnea and Denies dyspnea on exertion GI Denies abdominal pain, Denies change in bowel habits, Denies excessive flatus, Denies nausea and Denies vomiting Denies urinary incontinence, Denies urinary hesitancy and Denies urinary urgency Physical exam (Primary Care) Vital Signs: Last Vital Signs BP 112/60 10/27/23 15:49 BMI result Body Mass Index 21.6 Tobacco/Smoking Status: Tobacco use Status Tobacco use date assessed 10/27/23 10/27/23 15:54 Patient Tobacco Use Status Never used Tobacco 10/27/23 15:54 e-Cigarette/Vaping Use Never Used 10/27/23 15:54 PHQ-9: PHQ-9 Score PHQ-9: Total score 6 10/27/23 16:00 Thrive Assessment: Date of Thrive Assessment Date Thrive assessed 10/27/23 10/27/23 16:00 Currently or been in a relationship where the following occur: no concerns reported Resp Effort & Inspection: normal respiratory effort Auscultation: clear to auscultation bilaterally Cardio Jugular venous distension: no JVD Rate: regular rate Rhythm: regular rhythm Heart sounds: S1 normal heart sound present and S2 normal heart sound present Extrem General: Yes full ROM Assessment and Plan Assessment & Plan (1) Mild recurrent major depression: Code(s): F33.0 - Major depressive disorder, recurrent, mild Plan: Discontinue amitriptyline. Start venlafaxine at bedtime. (2) Dyslipidemia: Code(s): E78.5 - Hyperlipidemia, unspecified Plan: Continue statins. Repeat lipid panel. (3) Hypothyroidism: Code(s): E03.9 - Hypothyroidism, unspecified Qualifiers: Hypothyroidism type: unspecified Qualified Code(s): E03.9 - Hypothyroidism, unspecified Plan: Continue levothyroxine. (4) GERD (gastroesophageal reflux disease): Code(s): K21.9 - Gastro-esophageal reflux disease without esophagitis Qualifiers: Esophagitis presence: esophagitis presence not specified Qualified Code(s): K21.9 - Gastro-esophageal reflux disease without esophagitis Plan: Continue PPIs. Orders: Orders Vitamin B12 and Folate 4 Months E53.8 - Deficiency of other specified B group vitamins Vitamin D 25-OH Total 4 Months E55.9 - Vitamin D deficiency, unspecified Lipid Panel 4 Months E78.5 - Hyperlipidemia, unspecified Complete Blood Count Auto Diff 4 Months D64.9 - Anemia, unspecified IRON PROFILE 4 Months D64.9 - Anemia, unspecified Thyroid Stimulating Hormone 4 Months E03.9 - Hypothyroidism, unspecified Comprehensive [place]. Panel Fast 4 Months M54.50 - Low back pain, unspecified XR chest 2V Today R05.9 - Cough, unspecified Referrals Open Access Screening Colonoscopy Referral Z12.11 - Encounter for screening for malignant neoplasm of colon Medications: New loratadine (Allergy Relief (loratadine)) 10 mg PO DAILY 90 days PRN 90 tabs 0RF allergic symptoms venlafaxine 37.5 mg PO BEDTIME 30 days 30 tabs 1RF Discontinued amitriptyline Discontinued Reason: Patient Completed Course 25 mg PO BEDTIME 90 days 90 tabs 3RF G47.00 - Insomnia, unspecified Coding Level of Care Code Est Pt Level 4 (54260) Diagnoses Mild recurrent major depression F33.0 Dyslipidemia E78.5 Hypothyroidism, unspecified type E03.9 Hypothyroidism type: unspecified Gastroesophageal reflux disease, unspecified whether esophagitis present K21.9 Esophagitis presence: esophagitis presence not specified Time Spent (min) 23
== END 2023-10-27 16:24 | disposition home or self-care (01) ==
PROVIDERS: PCP Internal Medicine; Visit Provider Internal Medicine
DX: F33.0 Major depressive disorder, recurrent, mild (principal); E78.5 Hyperlipidemia, unspecified; E03.9 Hypothyroidism, unspecified; K21.9 Gastro-esophageal reflux disease without esophagitis
CPT/HCPCS: 99214

== ENCOUNTER 2023-10-27 16:30 | Outpatient (REF) | payer OTHER, SELFPAY ==
--- NOTE | ~2023-10-27 | XR_ITS ---
EXAMINATION: XR CHEST CLINICAL INFORMATION: Cough, unspecified COMPARISON: Chest 01/02/2018 TECHNIQUE: 2 views of the chest were obtained. FINDINGS: No significant abnormality is noted involving the heart, lungs, mediastinum or soft tissues. Mild degenerative changes of the thoracic spine. XR/XR chest 2V IMPRESSION: No acute disease.
== END 2023-10-27 16:31 | disposition home or self-care (01) ==
LOC: HO.XRAY 16:30
PROVIDERS: PCP Internal Medicine; Visit Provider Internal Medicine
DX: R05.9 Cough, unspecified (principal)
CPT/HCPCS: 71046

== ENCOUNTER 2024-03-29 08:56 | Outpatient (REF) | payer OTHER, SELFPAY ==
[2024-03-29 09:06] LABS: MANUAL DIFF FLAG NO
[2024-03-29 09:36] LABS: Basophils Percent Auto 0.6 % (0-2); Eosinophils Absolute Auto 0.1 X10*3/uL (0.0-0.4); Eosinophils Percent Auto 2.5 % (0-4); Hemoglobin 12.7 g/dl (12.0-16.0); Imm Gran Abs Auto 0.01 X10*3/uL (0.00-0.03); Imm Gran Pct Auto 0.2 % (0.0-0.4); Lymphocytes Absolute Auto 1.7 X10*3/uL (1.2-4.9); Lymphocytes Percent Auto 33.2 % (20-40); Mean Corpuscular HGB Conc 32.6 g/dl (31.0-35.0); Mean Corpuscular Hemoglobin 29.7 pg (27.0-33.0); Mean Corpuscular Volume 91.3 fL (80.0-98.0); Mean Platelet Volume 9.2 fL (9.4-12.3); Monocytes Absolute Auto 0.4 X10*3/uL (0.1-1.2); Monocytes Percent Auto 7.6 % (2-11); Neutrophils Absolute Auto 2.9 x10*3/uL (2.0-8.3); Neutrophils Percent Auto 55.9 % (45-73); Platelet Count 256 X10*3/uL (160-400); Red Blood Count 4.27 X10*6/uL (4.20-5.50); Red Cell Distribution Width 14.8 % (11.0-16.0); White Blood Count 5.1 X10*3/uL (4.8-10.8)
[2024-03-29 10:10] LABS: Alanine Aminotransferase 16 U/L (0-31); Albumin Level 4.5 g/dL (3.5-5.0); Alkaline Phosphatase 58 U/L (39-117); Anion Gap 12 (12-20); Aspartate Amino Transferase 29 U/L (5-31); Bilirubin Total 0.6 mg/dL (0.0-1.0); Blood Urea Nitrogen 20 mg/dL (9-16); Calcium 9.8 mg/dL (8.4-10.2); Carbon Dioxide 28 mmol/L (22-29); Chloride 106 mmol/L (96-108); Cholesterol 188 mg/dL (<200); Estimated Glomerular Filt Rate > 60; Glucose Fasting 88 mg/dL (60-99); HDL Cholesterol 44 mg/dL (>40); Iron 56 mcg/dL (30-160); LDL Cholesterol Calculated 121 mg/dL (<100); Percent Iron Saturation 17 % (15-50); Potassium 3.8 mmol/L (3.3-5.1); Sodium 142 mmol/L (135-145); Total Iron Binding Capacity 336 mcg/dL (228-428); Total Protein 7.5 g/dL (6.5-8.0); Triglycerides 116 mg/dL (<150); Unsaturated Iron Binding 280 ug/dL
[2024-03-29 10:28] LABS: Thyroid Stimulating Hormone 2.84 uIU/mL (0.32-4.0); Vitamin D 25-OH Total 55.5 ng/mL (>30)
[2024-03-29 11:04] LABS: Vitamin B12 672 pg/mL (200-900)
== END 2024-03-29 08:57 | disposition home or self-care (01) ==
LOC: HO.LAB 08:56
PROVIDERS: PCP Internal Medicine; Visit Provider Internal Medicine
DX: E53.8 Deficiency of other specified B group vitamins (principal); E78.5 Hyperlipidemia, unspecified; M54.50 Low back pain, unspecified; E55.9 Vitamin D deficiency, unspecified; D64.9 Anemia, unspecified; E03.9 Hypothyroidism, unspecified
CPT/HCPCS: 36415; 80053; 80061; 82306; 82607; 82746; 83540; 84443; 85025

== ENCOUNTER 2024-04-05 09:03 | Outpatient (AMB) | payer OTHER, SELFPAY ==
--- NOTE | 2024-04-05 09:06 | A.OFFPC_ITS ---
Vital Signs 04/05/24 09:14 Height 5 ft 2 in Weight 119 lb BMI 21.8 BP 116/70 Blood Pressure Location Lt brachial Position Sitting Intake Visit Reasons: annual exam Intake Note: Patient here for an Annual Physical Exam Jacker Feeder Required: No Accompanied by: Self / Same As Patient Allergies ibuprofen Allergy (Intermediate, Verified 04/05/24 09:24) pruritus nitrofurantoin Allergy (Mild, Verified 04/05/24 09:24) pruritus gabapentin Adverse Reaction (Intermediate, Verified 04/05/24 09:24) loopiness Medication List - Last Reconciled 04/05/24 by Margarita Jimenez MD acetaminophen 1,000 mg (2 x 500 mg) PO Q6H PRN 30 days calcium carbonate 600 mg PO BID 90 days cholecalciferol (vitamin D3) 25 mcg PO DAILY 90 days levothyroxine 50 mcg PO DAILY 90 days loratadine (Allergy Relief (loratadine)) 10 mg PO DAILY PRN 90 days omeprazole 20 mg PO DAILY 90 days pravastatin 40 mg PO BEDTIME 90 days venlafaxine 37.5 mg PO BEDTIME 30 days Tobacco use date assessed: 10/27/23 Fall risk assessment: 1 Fall in past year Last assessed Fall Risk: 04/05/24 Dental Screening Dental Screen Date: 10/27/23 HPI HPI Comments History of Present Illness Details This is a 73-year-old female with mild recurrent major depression that comes for her physical exam. Depression stable with amitriptyline at bedtime. I will discontinue venlafaxine because it gives her abdominal pain. Mammogram done 2023 was normal. DEXA scan done 2021 and will be repeated this year. Colonoscopy done 2016 and next colonoscopy should be 2026. Flu vaccine was done last month at the pharmacy. No chest pain or shortness on breath. Complains of left shoulder pain and bilateral hip pain that has been bothering her for over a month. Walks with no assistive device. [facility] Medical History Left knee pain Medicare annual wellness visit, initial Mild recurrent major depression Dyslipidemia Skin lesion Insomnia Age-related osteoporosis without current pathological fracture Hypovitaminosis D GERD (gastroesophageal reflux disease) Hypothyroidism Surgical History History of lumbar surgery History of total abdominal hysterectomy Family History (Updated 04/05/24 @ 09:29 by Margarita Jimenez MD) Father No problems noted. Mother Diabetes Chronic mental illness Alzheimers disease Paternal Aunt Cancer Family/Other FH: mental illness Social History (Updated 04/05/24 @ 09:29 by Margarita Jimenez MD) Housing: Apartment Alcohol intake: current Alcohol intake frequency: a few times a month Alcohol type: wine Patient Tobacco Use Status: Never used Tobacco e-Cigarette/Vaping Use: Never Used Second Hand Smoke Exposure: No service: No Current occupational status: unemployed Cognitive needs: No Hearing needs: No Vision needs: No Female Reproductive History Menstrual Age of Menarche: 13 Questionnaire PHQ-9 Over the last 2 weeks, how often have you been bothered by any of the following problems? 1. Little interest or pleasure in doing things: several days 2. Feeling down, depressed, or hopeless: not at all 3. Trouble falling or staying asleep, or sleeping too much: not at all 4. Feeling tired or having little energy: several days 5. Poor appetite or overeating: not at all 6. Feeling bad about yourself - or that you are a failure or have let yourself or your family down: several days 7. Trouble concentrating on things, such as reading the newspaper or watching television: not at all 8. Moving or speaking so slowly that other people could have noticed. Or the opposite - being so fidgety or restless that you have been moving around a lot more than usual: not at all 9. Thoughts that you would be better off or of hurting yourself in some way: not at all Total score: 3 Depression Screening Interpretation: Positive Depression Screening Follow-up: Existing condition, In treatment and Follow-up Visit Requested Depression Screening Done: Yes 90087 - PHQ-9 Billing: Yes Source: Developed by Drs. Zack Peñaloza, Gita Birch, Paulie Womack and colleagues, with an educational mark from [employer] Thrive Questionnaire Date Thrive assessed: 10/27/23 I am a: Patient What is your living situation today?: I have a steady place to live Within the past 12 months, did the food you bought not last and you didn't have the money to get more?: Sometimes True Within the past 12 months, did you worry whether your food would run out before you got money to buy more?: Sometimes True Do you have trouble paying for medicines?: I choose not to answer this question Do you have trouble getting transportation to medical appointments?: No Do you have trouble paying your heating and electricity bill?: No Do you have trouble taking care of your child, family member or friend?: No Do you have trouble with day-to-day activities such as bathing, preparing meals, shopping, managing finances, etc.?: No Are you currently unemployed and looking for a job?: I choose not to answer this question Are you interested in more education?: Yes Please select the resources that you would like help with: None Currently or been in a relationship where the following occur: No concerns reported THRIVE Score: 2 AUDIT C Alcohol Use Questionnaire (AUDIT-C) 1. How often do you have a drink containing alcohol?: 2-4 times a month 2. How many drinks containing alcohol do you have on a typical day when you are drinking?: 1 or 2 3. How often do you have six or more drinks on one occasion?: Never Total Score: 2 Score Reviewed/Action Taken: No FADIA-7 AMB Questionnaire FADIA-7 Date FADIA - 7 assessed: 10/27/23 Feeling nervous, anxious, or on edge: 1 = Several days Not being able to stop or control worryin = Several days Worrying too much about different things: 1 = Several days Trouble relaxin = Not at all Being so restless that it is hard to sit still: 0 = Not at all Becoming easily annoyed or irritable: 1 = Several days Feeling afraid as if something awful might happen: 1 = Several days Total FADIA-7 score (0-4 normal; 5-9 mild; 10-14 moderate; 15-21 severe): 5 Source: Developed by Drs. Zack Peñaloza, Gita Birch, Paulie Womack and colleagues, with an educational mark from [employer]. FADIA-7 Assessment Billing FADIA-7 Assessment Tool: FADIA-7 Assessment 04692 Review of Systems Const All systems reviewed & are unremarkable except as noted in HPI and below Card Denies chest pain at rest, Denies chest pain with activity, Denies edema, Denies irregular heart rhythm, Denies claudication, Denies dyspnea, Denies dyspnea on exertion, Denies orthopnea, Denies paroxysmal nocturnal dyspnea and Denies slow heart rate Resp Denies cough, Denies dyspnea and Denies dyspnea on exertion GI Denies abdominal pain, Denies change in bowel habits, Denies excessive flatus, Denies nausea and Denies vomiting Denies urinary incontinence, Denies urinary hesitancy and Denies urinary urgency Musc Reports back pain and Reports arthralgias Neuro Denies lack of coordination Physical exam (Primary Care) Vital Signs: Last Vital Signs BP 116/70 04/05/24 09:14 BMI result Body Mass Index 21.8 Tobacco/Smoking Status: Tobacco use Status Tobacco use date assessed 10/27/23 04/05/24 09:09 Patient Tobacco Use Status Never used Tobacco 04/05/24 09:29 e-Cigarette/Vaping Use Never Used 04/05/24 09:29 PHQ-9: PHQ-9 Score PHQ-9: Total score 3 04/05/24 09:29 Depression Screening Interpretation: Positive Depression Screening Follow-up: Existing condition, In treatment and Follow-up Visit Requested Thrive Assessment: Date of Thrive Assessment Date Thrive assessed 10/27/23 04/05/24 09:09 Currently or been in a relationship where the following occur: No concerns reported [facility] Head: Yes normal to inspection, Yes normocephalic and Yes atraumatic Ears: external ears normal Eyes General: appearance normal, both eyes and all related structures Eyelids: Yes eyelids normal Conjunctivae: conjunctivae normal Neck Neck: Yes normal visual inspection and Yes supple Resp Effort & Inspection: normal respiratory effort Auscultation: clear to auscultation bilaterally Cardio Jugular venous distension: no JVD Rate: regular rate Rhythm: regular rhythm Heart sounds: S1 normal heart sound present and S2 normal heart sound present GI Inspection: Yes normal to inspection Palpation (GI): Soft to palpation and nontender Auscultation: normal bowel sounds Skin General skin exam: no rashes or lesions noted Neuro General: no focal motor deficits Extrem General: Yes full ROM Psych Appearance: grossly normal Coding Level of Care Code Est Pt Level 4 (25763) Est Pt Prev Care >65y(26743) Diagnoses Physical exam Z00.00 Chronic left shoulder pain M25.512; G89.29 Chronicity: chronic Right hip pain M25.551 Left hip pain M25.552 Mild recurrent major depression F33.0 Additional Codes FADIA-7 Assessment Billing - FADIA-7 Assessment Tool: FADIA-7 Assessment 89438 ([id number]) Time Spent (min) 35 Assessment & Plan Assessment & Plan (1) Physical exam: Code(s): Z00.00 - Encounter for general adult medical examination without abnormal findings Category: Medical Plan: Repeat in a year. (2) Left shoulder pain: Code(s): M25.512 - Pain in left shoulder Category: Medical Qualifiers: Chronicity: chronic Qualified Code(s): M25.512 - Pain in left shoulder; G89.29 - Other chronic pain Plan: X-ray ordered. (3) Right hip pain: Code(s): M25.551 - Pain in right hip Category: Medical Plan: X-ray ordered. (4) Left hip pain: Code(s): M25.552 - Pain in left hip Category: Medical Plan: X-ray ordered. (5) Mild recurrent major depression: Code(s): F33.0 - Major depressive disorder, recurrent, mild Category: Medical Plan: Discontinue venlafaxine. Continue amitriptyline. Follow-up visit requested. Orders: Orders XR DEXA axial skeleton Today Z78.0 - Asymptomatic menopausal state XR hip LT min 2V Today M25.552 - Pain in left hip XR shoulder LT min 2V Today M25.512 - Pain in left shoulder XR hip RT min 2V Today M25.551 - Pain in right hip Medications: New amitriptyline 25 mg PO BEDTIME 90 tabs 3RF 90 days Refilled acetaminophen 1,000 mg (2 x 500 mg) PO Q6H PRN 240 caps 0RF fever 30 days loratadine (Allergy Relief (loratadine)) 10 mg PO DAILY PRN 90 tabs 0RF allergic symptoms 90 days Discontinued venlafaxine Discontinued Reason: Patient Completed Course 37.5 mg PO BEDTIME 30 days 30 tabs 1RF
[2024-04-05 09:14] VITALS: BP 116/70; BMI 21.8
== END 2024-04-05 09:38 | disposition home or self-care (01) ==
PROVIDERS: PCP Internal Medicine; Visit Provider Internal Medicine
DX: Z00.00 Encounter for general adult medical examination without abnormal findings (principal); M25.512 Pain in left shoulder; F33.0 Major depressive disorder, recurrent, mild; G89.29 Other chronic pain; M25.551 Pain in right hip; M25.552 Pain in left hip

== ENCOUNTER 2024-04-05 09:03 | Outpatient (REF) | payer OTHER, SELFPAY ==
--- NOTE | ~2024-04-05 | XR_ITS ---
EXAMINATION: XR SHOULDER, LEFT CLINICAL INFORMATION: Pain in the left shoulder COMPARISON: None available. TECHNIQUE: AP external rotation, Grashey, scapular Y, and axillary views of the left shoulder. FINDINGS: Mild osteoarthritis of the glenohumeral joint with small marginal osteophytes along the inferior aspect of the humeral head. No joint space narrowing. Acromial clavicular joint: Normal. Surrounding bones soft tissues unremarkable. XR/XR shoulder LT min 2V IMPRESSION: Mild osteoarthritis of the glenohumeral joint. Electronically signed by: Jones Coronado MD 04/11/2024 12:16 PM EDT
--- NOTE | ~2024-04-05 | XR_ITS ---
EXAMINATION: XR HIP RIGHT 2 VIEWS CLINICAL INFORMATION: Pain in right hip M25.551. COMPARISON: XR Both hip includes pelvis 04/01/2013 TECHNIQUE: Two views of the right hip. FINDINGS: No fracture. Alignment is anatomic. Hip joint space is maintained. Soft tissues are unremarkable. XR/XR hip RT min 2V IMPRESSION: Normal right hip. Electronically signed by: Jones Coronado MD 06/08/2024 08:54 AM [facility]
--- NOTE | ~2024-04-05 | XR_ITS ---
EXAMINATION: XR HIP LEFT 2 VIEWS CLINICAL INFORMATION: Pain in left hip M25.552. COMPARISON: XR Hip both includes pelvis 04/01/2013 TECHNIQUE: Two views of the left hip. FINDINGS: No fracture. Alignment is anatomic. Hip joint space is maintained. Soft tissues are unremarkable. XR/XR hip LT min 2V IMPRESSION: Normal left hip. Electronically signed by: Jones Coronado MD 06/08/2024 08:54 AM [facility]
== END 2024-04-05 09:04 | disposition home or self-care (01) ==
LOC: HO.XRAY 09:03
PROVIDERS: PCP Internal Medicine; Visit Provider Internal Medicine
DX: Z00.00 Encounter for general adult medical examination without abnormal findings (principal); M25.512 Pain in left shoulder; M25.551 Pain in right hip; M25.552 Pain in left hip; G89.29 Other chronic pain; F33.0 Major depressive disorder, recurrent, mild
CPT/HCPCS: 73030; 73502; 96127; 99212; 99397

== ENCOUNTER 2024-05-11 11:19 | Outpatient (REF) | payer OTHER, SELFPAY ==
--- NOTE | ~2024-05-11 | MM_ITS ---
EXAMINATION: BONE DENSITOMETRY CLINICAL INDICATION: Menopause. COMPARISON: Previous BD dated 02/08/2022 and baseline BD dated 09/16/2007. TECHNIQUE: Using a [employer] DXA System (software version: 13.1) manufactured by [employer], dual-energy x-ray absorptiometry was performed of the lumbar spine and left hip. The images are of good technical quality. Summary results are attached. FINDINGS: LEFT FEMUR, NECK: Current: BMD 0.706 g/cm2, Z-score -0.3, T-score -2.4, osteopenia. Prior: BMD 0.725 g/cm2. Baseline: BMD 0.730 g/cm2. LEFT FEMUR, TOTAL: Current: BMD 0.807 g/cm2, Z-score 0.3, T-score -1.6, osteopenia, 1.4% increase from previous, 0.2% decrease from baseline (<5% change is not significant). Prior: BMD 0.796 g/cm2. Baseline: BMD 0.809 g/cm2. AP SPINE L1-L4: Current: BMD 0.932 g/cm2, Z-score 0.0, T-score -2.1, osteopenia, 5.0% increase from previous, 9.9% increase from baseline (<5% change is not significant). Prior: BMD 0.888 g/cm2. Baseline: BMD 0.848 g/cm2. IDENTIFIED RISK FACTORS: Early menopause, hysterectomy, osteoporosis, secondary osteoporosis. HISTORY OF FRACTURE: None listed. MEDICATIONS: Calcium or multivitamin. Vitamin D, bisphosphonate. MM/XR DEXA axial skeleton IMPRESSION: 1. DIAGNOSIS: Osteopenia based on the lowest T-score value of -2.4 in the femoral neck applying World Health Organization criteria. 2. 10-YEAR FRACTURE RISK PREDICTION, FRAX: Not performed in this patient on estrogen or bone building treatments. 3. Treatment Recommendations: NOF guidelines recommend consideration for treatment in postmenopausal women and men age 50 and older presenting with the following: -A hip or vertebral (clinical or morphometric) fracture. -T-score less than or equal to -2.5 at the femoral neck or spine after appropriate evaluation to exclude secondary causes. -Low bone mass at the hip or spine and a 10-year fracture probability by FRAX of greater than or equal to 3% for hip fracture or greater than or equal to 20% for major osteoporotic fracture based on the [place] adapted WHO algorithm. 4. Other Recommendations: All treatment decisions require clinical judgment and consideration of individual patient factors, including patient preferences, comorbidities, previous drug use, risk factors not captured in the FRAX model (e.g. frailty, falls, vitamin D deficiency, increased bone turnover, interval significant decline in bone density) and possible under or overestimation of fracture risk by FRAX. Additional medical evaluation for secondary cause of low bone mineral density may be appropriate. FUTURE SCAN RECOMMENDATION: People with diagnosed cases of osteoporosis or at high risk for fracture should have regular bone mineral density tests. For patients eligible for Medicare, routine testing is allowed once every 2 years. The testing frequency can be increased to one year for patients who have rapidly progressing disease, those who are receiving or discontinuing medical therapy to restore bone mass, or have additional risk factors. Electronically signed by: Charissa Calle MD 05/12/2024 12:26 PM LISHA CAN
== END 2024-05-11 11:20 | disposition home or self-care (01) ==
LOC: HO.MAMMO 11:19
PROVIDERS: PCP Internal Medicine; Visit Provider Internal Medicine
DX: Z13.820 Encounter for screening for osteoporosis (principal); Z78.0 Asymptomatic menopausal state; Z90.710 Acquired absence of both cervix and uterus; M85.89 Other specified disorders of bone density and structure, multiple sites
CPT/HCPCS: 77080

== ENCOUNTER 2024-09-29 09:35 | Outpatient (REF) | payer OTHER, SELFPAY ==
[2024-09-29 09:48] LABS: MANUAL DIFF FLAG NO
[2024-09-29 10:28] LABS: Basophils Percent Auto 0.5 % (0-2); Eosinophils Absolute Auto 0.2 X10*3/uL (0.0-0.4); Eosinophils Percent Auto 2.5 % (0-4); Hematocrit 39.1 % (37.0-47.0); Hemoglobin 12.4 g/dl (12.0-16.0); Imm Gran Abs Auto 0.02 X10*3/uL (0.00-0.03); Imm Gran Pct Auto 0.3 % (0.0-0.4); Lymphocytes Absolute Auto 2.1 X10*3/uL (1.2-4.9); Lymphocytes Percent Auto 34.7 % (20-40); Mean Corpuscular HGB Conc 31.7 g/dl (31.0-35.0); Mean Corpuscular Hemoglobin 28.5 pg (27.0-33.0); Mean Corpuscular Volume 89.9 fL (80.0-98.0); Mean Platelet Volume 9.8 fL (9.4-12.3); Monocytes Absolute Auto 0.5 X10*3/uL (0.1-1.2); Monocytes Percent Auto 7.6 % (2-11); Neutrophils Absolute Auto 3.3 x10*3/uL (2.0-8.3); Neutrophils Percent Auto 54.4 % (45-73); Platelet Count 273 X10*3/uL (160-400); Red Blood Count 4.35 X10*6/uL (4.20-5.50); Red Cell Distribution Width 14.7 % (11.0-16.0); White Blood Count 6.1 X10*3/uL (4.8-10.8)
[2024-09-29 11:27] LABS: Alanine Aminotransferase 14 U/L (0-31); Albumin Level 4.2 g/dL (3.5-5.0); Alkaline Phosphatase 72 U/L (39-117); Anion Gap 10 (12-20); Aspartate Amino Transferase 32 U/L (5-31); Bilirubin Total 0.6 mg/dL (0.0-1.0); Blood Urea Nitrogen 29 mg/dL (9-16); Calcium 9.6 mg/dL (8.4-10.2); Carbon Dioxide 27 mmol/L (22-29); Chloride 108 mmol/L (96-108); Cholesterol 148 mg/dL (<200); Estimated Glomerular Filt Rate > 60; Glucose Fasting 86 mg/dL (60-99); HDL Cholesterol 41 mg/dL (>40); LDL Cholesterol Calculated 80 mg/dL (<100); Potassium 3.8 mmol/L (3.3-5.1); Sodium 141 mmol/L (135-145); Total Protein 7.1 g/dL (6.5-8.0); Triglycerides 139 mg/dL (<150)
[2024-09-29 11:49] LABS: Thyroid Stimulating Hormone 2.13 uIU/mL (0.32-4.0); Vitamin D 25-OH Total 54.2 ng/mL (>30)
== END 2024-09-29 09:36 | disposition home or self-care (01) ==
LOC: HO.LAB 09:35
PROVIDERS: PCP Internal Medicine; Visit Provider Internal Medicine
DX: L98.9 Disorder of the skin and subcutaneous tissue, unspecified (principal); E03.9 Hypothyroidism, unspecified; E78.5 Hyperlipidemia, unspecified; E55.9 Vitamin D deficiency, unspecified
CPT/HCPCS: 36415; 80053; 80061; 82306; 84443; 85025

== ENCOUNTER 2024-10-05 09:55 | Outpatient (REF) | payer OTHER, SELFPAY ==
--- OUTSIDE RECORDS SUMMARY | 2024-10-05 11:29 | XMS_ITS | Encounter Summary ---
Author Organization [employer] [facility] Address [address] [place] [address] Care Team Providers Care Metal Milling Machine Operator Name Role Phone Unavailable Primary Care Provider [...]
--- OUTSIDE RECORDS SUMMARY | 2024-10-05 11:29 | XMS_ITS | Encounter Summary ---
Author Organization [employer] [facility] Address [address] [place] [address] Care Team Providers Care Bulk Station Agent Name Role Phone Unavailable Primary Care Provider [...]
--- OUTSIDE RECORDS SUMMARY | 2024-10-05 11:29 | XMS_ITS | Clinical Summary ---
Author Organization [employer] [facility] Address [address] [place] [address] Care Team Providers Care Supervisor Maintenance Name Role Phone Unavailable Primary Care Provider [...] this topic Meningococcal Vaccine Aged Out No agustin rani eligible based on patient's age to [...]
--- OUTSIDE RECORDS SUMMARY | 2024-10-05 11:29 | XMS_ITS | Encounter Summary ---
Author Organization [employer] [facility] Address [address] [place] [address] Care Team Providers Care Mining Teacher Name Role Phone Unavailable Primary Care Provider Unavailabl e Encounter Details Date Type Department Care Team (Late st Contact Info) Description 06/06/2022 Abstract [facility] ADULT DENTAL [address] [place] [address] Yesica Kendrick [address] [place] [address] Social History Tobacco Use Types Packs/Day Years [...]
== END 2024-10-05 09:56 | disposition home or self-care (01) ==
LOC: HO.MAMMO 09:55
PROVIDERS: PCP Internal Medicine; Visit Provider Internal Medicine
DX: Z12.31 Encounter for screening mammogram for malignant neoplasm of breast (principal)
CPT/HCPCS: 77063; 77067

== ENCOUNTER → 2024-10-05 10:15 | Outpatient (BNV) | payer OTHER, SELFPAY | PROVIDERS: PCP Internal Medicine; Visit Provider Internal Medicine | DX: Z12.31 Encounter for screening mammogram for malignant neoplasm of breast (principal) | CPT/HCPCS: 77063; 77067 ==

== ENCOUNTER 2024-10-06 09:55 | Outpatient (AMB) | payer OTHER, SELFPAY ==
[2024-10-06 10:03] VITALS: BP 120/60; BMI 22.1
--- NOTE | 2024-10-06 10:03 | A.OFFPC_ITS ---
Vital Signs 10/06/24 10:03 Height 5 ft 2 in Weight 121 lb BMI 22.1 BP 120/60 Blood Pressure Location Lt brachial Position Sitting Intake Visit Reasons: thyroid Intake Note: Patient here for a follow up thyroid Access Services Librarian Required: No Accompanied by: Spouse Allergies ibuprofen Allergy (Intermediate, Verified 10/06/24 10:37) pruritus nitrofurantoin Allergy (Mild, Verified 10/06/24 10:37) pruritus gabapentin Adverse Reaction (Intermediate, Verified 10/06/24 10:37) loopiness Medication List - Last Reconciled 10/06/24 by Margarita Jimenez MD acetaminophen 1,000 mg (2 x 500 mg) PO Q6H PRN 30 days amitriptyline 25 mg PO BEDTIME 90 days bisacodyl (Dulcolax (bisacodyl)) 20 mg (4 x 5 mg) PO ONCE 1 day calcium carbonate 600 mg PO BID 90 days cholecalciferol (vitamin D3) 25 mcg PO DAILY 90 days levothyroxine 50 mcg PO DAILY 90 days loratadine (Allergy Relief (loratadine)) 10 mg PO DAILY PRN 90 days omeprazole 20 mg PO DAILY 90 days polyethylene glycol 3350 (Miralax) 238 grams PO ONCE 1 day pravastatin 40 mg PO BEDTIME 90 days Tobacco use date assessed: 10/06/24 Fall risk assessment: 1 Fall in past year Last assessed Fall Risk: 10/06/24 Dental Screening Dental Screen Date: 10/06/24 Did you have a dental visit in the last 12 months?: No Did you have a dental problem in the last 6 months where you did not have access to dental care?: No Was dental information given to patient?: Patient has dentist HPI HPI Comments History of Present Illness Details The patient is a 74-year-old female presenting with complaints of right hip pain related to arthritis. She reports increased pain intensity and tiredness while walking and mentions experiencing nightly muscle cramps in her feet. The patient had a past fall that she connects to the current hip discomfort, and she expresses a desire to start physical therapy. Her recent laboratory tests indicate all results are within normal ranges, including hemoglobin, white blood cells, platelets, renal function, glucose, liver enzymes, cholesterol, vitamin D, and thyroid levels. Management discussions included the introduction of magnesium to hopefully alleviate her cramps, with a follow-up plan for magnesium level recheck in six months. She also denies symptoms such as chest pain or shortness of breath, only mentioning tiredness when climbing stairs. The colonoscopy is planned for October. The patient?s current medications are acknowledged as effective, with pravastatin proving successful in managing her cholesterol levels. She has been counseled on SPF usage to ensure safe sun exposure for vitamin D synthesis. She has osteopenia from last bone density this year and is on calcium with vitamin-D. 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 Last TSH was stable and she is compliant with her levothyroxine for hypothyroidism. GERD stable with PPIs. [facility] Medical History (Updated 10/06/24 @ 11:39 by Margarita Jimenez MD) Left knee pain Medicare annual wellness visit, initial Mild recurrent major depression Dyslipidemia Skin lesion Insomnia Age-related osteoporosis without current pathological fracture Hypovitaminosis D GERD (gastroesophageal reflux disease) Hypothyroidism Surgical History History of lumbar surgery History of total abdominal hysterectomy Family History Father No problems noted. Mother Diabetes Chronic mental illness Alzheimers disease Paternal Aunt Cancer Family/Other FH: mental illness Social History Housing: Apartment Alcohol intake: current Alcohol intake frequency: a few times a month Alcohol type: wine Patient Tobacco Use Status: Never used Tobacco e-Cigarette/Vaping Use: Never Used Second Hand Smoke Exposure: No service: No Current occupational status: unemployed Cognitive needs: No Hearing needs: No Vision needs: No Female Reproductive History Menstrual Age of Menarche: 13 Questionnaire PHQ-9 Over the last 2 weeks, how often have you been bothered by any of the following problems? 1. Little interest or pleasure in doing things: not at all 2. Feeling down, depressed, or hopeless: several days 3. Trouble falling or staying asleep, or sleeping too much: not at all 4. Feeling tired or having little energy: several days 5. Poor appetite or overeating: not at all 6. Feeling bad about yourself - or that you are a failure or have let yourself or your family down: not at all 7. Trouble concentrating on things, such as reading the newspaper or watching television: not at all 8. Moving or speaking so slowly that other people could have noticed. Or the opposite - being so fidgety or restless that you have been moving around a lot more than usual: not at all 9. Thoughts that you would be better off or of hurting yourself in some way: not at all Total score: 2 Depression Screening Interpretation: Negative Depression Screening Done: Yes 71649 - PHQ-9 Billing: Yes Source: Developed by Drs. Zack Peñaloza, Gita Birch, Paulie Womack and colleagues, with an educational mark from [employer] Thrive Questionnaire Date Thrive assessed: 10/06/24 I am a: Patient What is your living situation today?: I have a steady place to live Within the past 12 months, did the food you bought not last and you didn't have the money to get more?: Sometimes True Within the past 12 months, did you worry whether your food would run out before you got money to buy more?: Sometimes True Do you have trouble paying for medicines?: I choose not to answer this question Do you have trouble getting transportation to medical appointments?: No Do you have trouble paying your heating and electricity bill?: No Do you have trouble taking care of your child, family member or friend?: No Do you have trouble with day-to-day activities such as bathing, preparing meals, shopping, managing finances, etc.?: No Are you currently unemployed and looking for a job?: I choose not to answer this question Are you interested in more education?: Yes Please select the resources that you would like help with: None Currently or been in a relationship where the following occur: No concerns reported THRIVE Score: 2 AUDIT C Alcohol Use Questionnaire (AUDIT-C) 1. How often do you have a drink containing alcohol?: 2-4 times a month 2. How many drinks containing alcohol do you have on a typical day when you are drinking?: 1 or 2 3. How often do you have six or more drinks on one occasion?: Never Total Score: 2 Score Reviewed/Action Taken: No FADIA-7 AMB Questionnaire FADIA-7 Date FADIA - 7 assessed: 10/06/24 Feeling nervous, anxious, or on edge: 1 = Several days Not being able to stop or control worryin = Not at all Worrying too much about different things: 1 = Several days Trouble relaxin = Not at all Being so restless that it is hard to sit still: 0 = Not at all Becoming easily annoyed or irritable: 0 = Not at all Feeling afraid as if something awful might happen: 0 = Not at all Total FADIA-7 score (0-4 normal; 5-9 mild; 10-14 moderate; 15-21 severe): 2 Source: Developed by Drs. Zack Peñaloza, Gita Birch, Paulie Womack and colleagues, with an educational mark from [employer] FADIA-7 Assessment Billing FADIA-7 Assessment Tool: FADIA-7 Assessment 80014 Review of Systems Const All systems reviewed & are unremarkable except as noted in HPI and below Card Denies chest pain at rest, Denies chest pain with activity, Denies edema, Denies irregular heart rhythm, Denies claudication, Denies dyspnea, Denies dyspnea on exertion, Denies orthopnea, Denies paroxysmal nocturnal dyspnea and Denies slow heart rate Resp Denies cough, Denies dyspnea and Denies dyspnea on exertion GI Denies abdominal pain, Denies change in bowel habits, Denies excessive flatus, Denies nausea and Denies vomiting Denies urinary incontinence, Denies urinary hesitancy and Denies urinary urgency Physical exam (Primary Care) Vital Signs: Last Vital Signs BP 120/60 10/06/24 10:03 BMI result Body Mass Index 22.1 Tobacco/Smoking Status: Tobacco use Status Tobacco use date assessed 10/06/24 10/06/24 10:12 Patient Tobacco Use Status Never used Tobacco 10/06/24 10:08 e-Cigarette/Vaping Use Never Used 10/06/24 10:08 PHQ-9: PHQ-9 Score PHQ-9: Total score 2 10/06/24 10:42 Depression Screening Interpretation: Negative Thrive Assessment: Date of Thrive Assessment Date Thrive assessed 10/06/24 10/06/24 10:08 Currently or been in a relationship where the following occur: No concerns reported Resp Effort & Inspection: normal respiratory effort Auscultation: clear to auscultation bilaterally Cardio Jugular venous distension: no JVD Rate: regular rate Rhythm: regular rhythm Heart sounds: S1 normal heart sound present and S2 normal heart sound present Extrem General: Yes full ROM Coding Level of Care Code Est Pt Level 4 (13700) Complex EM visit Add On G2211 Diagnoses Muscle cramps R25.2 Mild recurrent major depression F33.0 Dyslipidemia E78.5 Hypothyroidism, unspecified type E03.9 Hypothyroidism type: unspecified Gastroesophageal reflux disease, unspecified whether esophagitis present K21.9 Esophagitis presence: esophagitis presence not specified Osteopenia M85.80 Additional Codes FADIA-7 Assessment Billing - FADIA-7 Assessment Tool: FADIA-7 Assessment 39346 ([id number]) PHQ-9 - 14997 - PHQ-9 Billing: Yes ([id number]) Time Spent (min) 23 Assessment & Plan Assessment & Plan (1) Muscle cramps: Code(s): R25.2 - Cramp and spasm Category: Medical (2) Mild recurrent major depression: Code(s): F33.0 - Major depressive disorder, recurrent, mild Category: Medical (3) Dyslipidemia: Code(s): E78.5 - Hyperlipidemia, unspecified Category: Medical (4) Hypothyroidism: Code(s): E03.9 - Hypothyroidism, unspecified Category: Medical Qualifiers: Hypothyroidism type: unspecified Qualified Code(s): E03.9 - Hypothyroidism, unspecified (5) GERD (gastroesophageal reflux disease): Code(s): K21.9 - Gastro-esophageal reflux disease without esophagitis Category: Medical Qualifiers: Esophagitis presence: esophagitis presence not specified Qualified Cod e(s): K21.9 - Gastro-esophageal reflux disease without esophagitis (6) Osteopenia: Code(s): M85.80 - Other specified disorders of bone density and structure, unspecified site Category: Medical Plan I recommend initiating physical therapy for the right hip pain and arthritis management. Begin magnesium supplements to help with nighttime cramps, and we'll monitor for effectiveness and potential side effects. Continue current medications, including Tylenol and amitriptyline alongside calcium and vitamin D to support osteoporosis management. Maintain pravastatin and levothyroxine for hyperlipidemia and hypothyroidism, respectively. Encourage dietary vitamin D i ntake and safe sun exposure with sunscreen usage. A colonoscopy is planned for October. Follow up in March will include a magnesium level check. I highlighted the importance of compliance with these recommendations. Patient was informed and verbally consented to the use of an ambient scribe for clinic note documentation during this visit. I discussed the management options for the patient's right hip pain and arthritis, emphasizing the potential benefits of physical therapy to improve joint mobility. I explained the need for magnesium supplementation to reduce the frequency of cramps, highlighting the importance of monitoring for side effects such as diarrhea. Continuous use of current medications was advised because of their effectiveness, particularly in lipid management with pravastatin. Patient education included ensuring adequate vitamin D intake through diet and safe sun exposure with SPF-50 sunscreen to prevent skin damage while maintaining bone health. Anticipatory guidance entailed establishing a follow-up plan for a colonoscopy in October and more general health monitoring in March for a comprehensive assessment. Orders: Orders Vitamin D 25-OH Total 6 Months E55.9 - Vitamin D deficiency, unspecified Thyroid Stimulating Hormone 6 Months E03.9 - Hypothyroidism, unspecified Comprehensive [place]. Panel Fast 6 Months M25.551 - Pain in right hip Magnesium 6 Months R25.2 - Cramp and spasm Lipid Panel 6 Months E78.5 - Hyperlipidemia, unspecified Medications: New magnesium oxide 400 mg PO BEDTIME 90 tabs 1RF 90 days Patient Instructions: - Initiate physical therapy for hip pain. - Begin magnesium supplementation at night; discontinue if diarrhea occurs. - Continue current medications for pain, hypothyroidism, and cholesterol. - Increase dietary vitamin D intake and practice safe sun exposure using SPF 50 sunscreen. - Follow up with planned colonoscopy in October. - Schedule a return visit in March for further evaluations and discussion.
--- OUTSIDE RECORDS SUMMARY | 2024-10-06 11:21 | XMS_ITS | Encounter Summary ---
Author Organization [employer] [facility] Address [address] [place] [address] Care Team Providers Care Tool And Die Maker/Designer Name Role Phone Unavailable Primary Care Provider [...]
--- OUTSIDE RECORDS SUMMARY | 2024-10-06 11:21 | XMS_ITS | Clinical Summary ---
Author Organization [employer] [facility] Address [address] [place] [address] Care Team Providers Care Motor Patrol Operator Name Role Phone Unavailable Primary Care [...]
--- OUTSIDE RECORDS SUMMARY | 2024-10-06 11:21 | XMS_ITS | Encounter Summary ---
Author Organization [employer] [facility] Address [address] [place] [address] Care Team Providers Care Child Care Specialist Name Role Phone Unavailable Primary Care Provider Unavailabl e Encounter Details Date Type Department Care Team (Late st Contact Info) Description 06/06/2022 Abstract [facility] ADULT DENTAL [address] [place] [address] Yesica Kendrick [address] [place] [address] Social History Tobacco Use Types Packs/Day Years [...]
--- OUTSIDE RECORDS SUMMARY | 2024-10-06 11:21 | XMS_ITS | Encounter Summary ---
Author Organization [facility] Address [address] [place] [address] Care Team Providers Care Pediatric Occupational Therapist Name Role Phone Unavailable Primary Care Provider [...]
== END 2024-10-06 10:49 | disposition home or self-care (01) ==
LOC: HO.HMCH 09:56
PROVIDERS: PCP Internal Medicine; Visit Provider Internal Medicine
DX: R25.2 Cramp and spasm (principal); F33.0 Major depressive disorder, recurrent, mild; E78.5 Hyperlipidemia, unspecified; E03.9 Hypothyroidism, unspecified; K21.9 Gastro-esophageal reflux disease without esophagitis; M85.80 Other specified disorders of bone density and structure, unspecified site

== ENCOUNTER → 2024-10-06 09:55 | Outpatient (BNVA) | payer OTHER, SELFPAY | PROVIDERS: PCP Internal Medicine; Visit Provider Internal Medicine | DX: E03.9 Hypothyroidism, unspecified (principal); R25.2 Cramp and spasm; F33.0 Major depressive disorder, recurrent, mild; E78.5 Hyperlipidemia, unspecified; K21.9 Gastro-esophageal reflux disease without esophagitis; M85.80 Other specified disorders of bone density and structure, unspecified site; M16.11 Unilateral primary osteoarthritis, right hip; Z79.899 Other long term (current) drug therapy | CPT/HCPCS: 96127; 99212 ==

== ENCOUNTER 2024-11-02 06:29 | Day surgery (SDC) | payer OTHER, SELFPAY ==
--- OUTSIDE RECORDS SUMMARY | 2024-09-30 08:35 | XMS_ITS | Clinical Summary ---
Author Organization [facility] Address [address] [place] [address] Care Team Providers Care Equipment Operat0R Name Role Phone Unavailable Primary Care Provider Unavailabl e Social History Tobacco Use Types Packs/Day Years Used Date Smoking Tobacco: Never Assessed Comments Unknown Sex and Gender Information Value Date Recorded Sex Assigned at Female 04/22/2022 10:16 AM EDT Legal Sex Female 10:16 AM EDT Gender Identity Female 04/22/2022 10:16 AM EDT Sexual Orientation Straight 04/22/2022 10 :16 AM EDT Plan of Treatment Health Maintenance Due Date Last Done Comments CT Colonography 1951 Colonoscopy 1951 Colorectal Cancer Screening 1951 Depression Screening 1951 FIT DNA/Cologuard 1951 FIT 1951 FOBT 1951 Sigmoidoscopy 1951 Alcohol/Substance Use Screening 1963 Tobacco Screening 1963 DTaP/Tdap/Td Vaccines (1 - Tdap) 1970 Mammogram 1991 Pneumococcal Vaccine: 50+ Years (1 of 1 - PCV) 2001 Zoster Vaccines (1 of 2) 2001 Dental Oral Exam 10/12/2022 04/12/2022, 12/2018, 06/11/2018, Additional history exists Dental Prophylaxis 10/12/2022 04/12/2022, 1 , 06/11/2018, Additional history exists Dental X-Ray: Bitewings 04/13/2023 04/12/20, 03/29/2019, 06/11/2018, Additional history exists COVID-19 Vaccine ( - season) 2024 Influenza Vaccine (#1) 2024 Dental X-Ray: Full Mouth 04/13/2025 04/12/2022, 12/0 02/2016 RSV Patients and Patients Aged 60 years or older (1 - 1-dose 75+ series) 2026 HIB Vaccines Aged Out No longer eligi ble based on patient's age to complete this topic HPV Vaccines Aged Out No longer eligi ble based on patient's age to complete this topic Hepatitis A Vaccines Aged Out No long er eligible based on patient's age to complete this topic Hepatitis B Vaccines Aged Out No long er eligible based on patient's age to complete this topic IPV Vaccines Aged Out No longer eligi ble based on patient's age to complete this topic Meningococcal Vaccine Aged Out No gaustin rani eligible based on patient's age to complete this topic RSV under 20 months Aged Out No longe r eligible based on patient's age to complete this topic Rotavirus Vaccines Aged Out No longer eligible based on patient's age to complete this topic Procedures Procedure Name Priority Date/Time Associated Diagnosis Comments PROPHYLAXIS - ADULT Routine 04/12/2022 1 2:00 AM EDT INTRAORAL - COMPLETE SERIES OF RADIOGRAPHIC IMAGES Routine 04/12/2022 12:00 AM EDT PERIODIC ORAL EVALUATION - ESTABLISHED PATIENT Routine 04/12/2022 12:00 AM EDT from Last 3 Months or Most Recently Relevant to Health Maintenance
--- OUTSIDE RECORDS SUMMARY | 2024-09-30 08:35 | XMS_ITS | Encounter Summary ---
Author Organization [employer] [facility] Address [address] [place] [address] Care Team Providers Care Accounts Payable Representative Name Role Phone Unavailable Primary Care Provider Unavailabl e Encounter Details Date Type Department Care Team (Latest Contact Info) Description 04/12/2022 Abstract [facility] Dental, Provider, DDS Social History Tobacco Use Types Packs/Day Years Used Date Smoking Tobacco: Never Assessed Comments Unknown Sex and Gender Information Value Date Recorded Sex Assigned at Female 04/22/2022 10:16 AM EDT Legal Sex Female 10:16 AM EDT Gender Identity Female 04/22/2022 10:16 AM EDT Sexual Orientation Straight 04/22/2022 10 :16 AM EDT documented as of this encounter Plan of Treatment Not on file documented as of this encounter Visit Diagnoses Not on filedocumented in this encounter
--- OUTSIDE RECORDS SUMMARY | 2024-09-30 08:35 | XMS_ITS | Encounter Summary ---
Author Organization [employer] [facility] Address [address] [place] [address] Care Team Providers Care Tie Man Name Role Phone Unavailable Primary Care Provider Unavailabl e Encounter Details Date Type Department Care Team (Late st Contact Info) Description 06/06/2022 Abstract [facility] ADULT DENTAL [address] [place] [address] Yesica Kendrick [address] [place] [address] Social History Tobacco Use Types Packs/Day Years [...]
--- OUTSIDE RECORDS SUMMARY | 2024-09-30 08:35 | XMS_ITS | Encounter Summary ---
Author Organization [employer] [facility] Address [address] [place] [address] Care Team Providers Care International Sales Representative Name Role Phone Unavailable Primary Care Provider Unavailabl e Encounter Details Date Type Department Care Team (Latest Contact Info) Description 03/29/2019 Abstract [facility] CONVERSION[facility] Dental, Provider, DDS Social [...]
--- NOTE | 2024-11-01 09:11 | HO.ANESPROP2 ---
HPI - Anesthesia Eval Consult details Narrative: 74yo F for Colonoscopy PMFSH Active Problems Active Problems: All Active Problems Osteopenia (Acute) Muscle cramps (Acute) Physical exam (Acute) Left shoulder pain (Acute) Right hip pain (Acute) Left hip pain (Acute) Chest pain (Acute) Cough (Acute) Lumbar pain (Acute) Medicare annual wellness visit, subsequent (Acute) Generalized abdominal pain (Acute) Vulvar lesion (Acute) Left knee pain (Acute) Medicare annual wellness visit, initial (Acute) Mild recurrent major depression (Acute) Dyslipidemia (Acute) Skin lesion (Acute) Genital pruritus (Acute) Insomnia (Acute) Hypovitaminosis D (Acute) GERD (gastroesophageal reflux disease) (Acute) Hypothyroidism (Acute) Past Medical History Medical History (Updated 10/06/24 @ 11:39 by Margarita Jimenez MD) Left knee pain Medicare annual wellness visit, initial Mild recurrent major depression Dyslipidemia Skin lesion Insomnia Age-related osteoporosis without current pathological fracture Hypovitaminosis D GERD (gastroesophageal reflux disease) Hypothyroidism Family History Family History Father No problems noted. Mother Diabetes Chronic mental illness Alzheimers disease Paternal Aunt Cancer Family/Other FH: mental illness Surgical History Surgical History History of lumbar surgery History of total abdominal hysterectomy Social History Social History Housing: Apartment Alcohol intake: current Alcohol intake frequency: a few times a month Alcohol type: wine Patient Tobacco Use Status: Never used Tobacco e-Cigarette/Vaping Use: Never Used Second Hand Smoke Exposure: No service: No Current occupational status: unemployed Cognitive needs: No Hearing needs: No Vision needs: No Meds Allergies Allergy/AdvReac Type Severity Reaction Status Date / Time ibuprofen Allergy Intermediate pruritus Verified 10/06/24 10:37 nitrofurantoin Allergy Mild pruritus Verified 10/06/24 10:37 gabapentin AdvReac Intermediate loopiness Verified 10/06/24 10:37 Assessment and Plan Assessment Anesthesia Assessment: Chart Reviewed
[2024-11-02 06:37] VITALS: BMI 21.4
[2024-11-02 07:11] VITALS: BP 140/57; PULSE 70; RESP 18; TEMP 36.7; O2SAT 100
[2024-11-02] MEDS: Lactated Ringers 1,000 ML 100 ML IVCONT (07:12)
--- NOTE | 2024-11-02 07:21 | HO.ANESPROP2 ---
[facility] Active Problems Active Problems: All Active Problems Osteopenia (Acute) Muscle cramps (Acute) Physical exam (Acute) Left shoulder pain (Acute) Right hip pain (Acute) Left hip pain (Acute) Chest pain (Acute) Cough (Acute) Lumbar pain (Acute) Medicare annual wellness visit, subsequent (Acute) Generalized abdominal pain (Acute) Vulvar lesion (Acute) Left knee pain (Acute) Medicare annual wellness visit, initial (Acute) Mild recurrent major depression (Acute) Dyslipidemia (Acute) Skin lesion (Acute) Genital pruritus (Acute) Insomnia (Acute) Hypovitaminosis D (Acute) GERD (gastroesophageal reflux disease) (Acute) Hypothyroidism (Acute) Past Medical History Medical History Left knee pain Medicare annual wellness visit, initial Mild recurrent major depression Dyslipidemia Skin lesion Insomnia Age-related osteoporosis without current pathological fracture Hypovitaminosis D GERD (gastroesophageal reflux disease) Hypothyroidism Functional capacity: independent ambulation Patient : No Family History Family History Father No problems noted. Mother Diabetes Chronic mental illness Alzheimers disease Paternal Aunt Cancer Family/Other FH: mental illness Family history of problems with anesthesia: No Surgical History Surgical History History of lumbar surgery History of total abdominal hysterectomy History of Problems with Anesthesia: No Social History Social History Housing: Apartment Alcohol intake: current Alcohol intake frequency: a few times a month Alcohol type: wine Patient Tobacco Use Status: Never used Tobacco e-Cigarette/Vaping Use: Never Used Second Hand Smoke Exposure: No Advance Directives: No Advance Directives Information Provided: Yes service: No Current occupational status: unemployed Cognitive needs: No Hearing needs: No Vision needs: No Meds Allergies Allergy/AdvReac Type Severity Reaction Status Date / Time ibuprofen Allergy Intermediate pruritus Verified 10/06/24 10:37 nitrofurantoin Allergy Mild pruritus Verified 10/06/24 10:37 gabapentin AdvReac Intermediate loopiness Verified 10/06/24 10:37 Active Medications: Current Medications Lactated Ringer's (Lr) 1,000 mls @ 100 mls/hr IVCONT .Q10H MARCUS Last Admin: 11/02/24 07:12 Dose: 100 mls/hr Exam Exam Date and Time: 11/02/2024 Height,Weight and Vital Signs: g Height 5 ft 2 in Weight 53.2 kg Last Vital Signs Temp 98.1 F 11/02/24 07:11 Pulse 70 11/02/24 07:11 Resp 18 11/02/24 07:11 BP 140/57 H 11/02/24 07:11 Pulse Ox 100 11/02/24 07:11 O2 Del Method Room Air 11/02/24 07:11 Airway Mallampati Class: I TM Dist: >3cm Neck ROM: Full Loose/Missing/Broken Teeth: No Heart: rrr Lungs: cta Assessment and Plan Final Anesthetic Review Family History of Problems with Anesthesia: No History of Problems with Anesthesia: No NPO: Yes ASA Class: II Final Preanesthetic Review: No Changes in Pt Med Stat, Meds/Allgs Chart Reviewed, Consent Obtained/Reviewed and Anes Risks/Benef Reviewed Patient Risk: Low Procedure Risk: Low Anesthetic Plan Anesthetic Plan: MAC: and Agree w/ Assess. and Plan Disposition: Standard PACU
--- NOTE | 2024-11-02 07:59 | MHC.SHP ---
Pre-Procedural Eval Section A - 24 Hr Update-Section A only Date of Service: 11/02/24 Section B - Complete if H&P > 30 days Chief Complaint: Encounter for screening for malignant neoplasm of Details of Present Illness: 74 y.o F here for screening colo. Last colo 2016 (Dr Escalera) good prep to cecum. Left knee pain Medicare annual wellness visit, initial Mild recurrent major depression Dyslipidemia Skin lesion Insomnia Age-related osteoporosis without current pathological fracture Hypovitaminosis D GERD (gastroesophageal reflux disease) Hypothyroidism Surgical History History of lumbar surgery History of total abdominal hysterectomy Present Medications: see Short Stay Collaborative assessment Allergies: Allergies Allergy/AdvReac Type Severity Reaction Status Date / Time ibuprofen Allergy Intermediate pruritus Verified 11/02/24 07:33 nitrofurantoin Allergy Mild pruritus Verified 11/02/24 07:33 gabapentin AdvReac Intermediate loopiness Verified 11/02/24 07:33 Review of Systems Review of Systems Comment: Ten point ROS negative Exam Exam Comment: Gen appear: No acute distress HEENT: no icterus Chest: No overt resp distress Abd: soft, nontender, nondistended Psych: Stable affect, answering questions appropriately Neuro: A/Ox3 noted to move all extremities spontaneously Ext: no peripheral edema Plan Diagnosis/Plan: Unchanged I have reviewed the history and physical and performed a pertinent physical examination on my patient. No changes have occurred unless specified. Time Spent With Patient Time: Total time managing care of this patient today ____ minutes.
[2024-11-02 09:26] VITALS: BP 74/37; PULSE 60; RESP 20; TEMP 36.2; O2SAT 97
[2024-11-02 09:31] VITALS: BP 83/43; PULSE 57; RESP 16; O2SAT 97
--- NOTE | 2024-11-02 09:33 | P.OPN-COLO_ITS ---
Colonoscopy Operative Note Operative Note Date of Service: 11/02/24 Narrative: Procedure: Colonoscopy Indication: Screening - average risk Endoscopist: Diane Renee MD Anesthesia Provider: Dr Barker Anesthesia type: MAC Instrument: Olympus [id number] Consent: Indication, risks vs benefits, and alternatives were discussed with the patient who gave written informed consent to proceed. An exterminator termite was utilized to assist with the consent. Monitoring: EKG, pulse, pulse oximetry and blood pressure were monitored throughout the procedure. Please see anesthesia flowsheet. Procedure: An abdominal binder was affixed to the lower abdomen in pre-op. The patient was then brought to the procedure room and placed in the left lateral decubitus position. IV medications were administered by the anesthesia provider in attendance. A digital rectal exam was performed which was normal. A distal attachment cap was affixed to the tip of the colonoscope which was then inserted through the anus and advanced through the colon to the cecum at 65 cm,and terminal ileum. Appendiceal orifice and ileocecal valve were identified. Mucosa was carefully examined under high definition white light as the instrument was slowly withdrawn in a retrograde panoramic fashion. Retroflexion was performed in rectum. The procedure was not difficult. There were no immediate obvious complications. The quality of the prep was BBPS: 3+2+3 = adequate Withdrawal time 6 minutes. Limitations: No limitations. Findings: Mucosa: Normal to cecum and terminal ileum. Protruding lesions: * Large internal hemorrhoids with stigmata of recent bleeding. Impression: 1. Normal colon mucosa 2. Internal hemorrhoids Recommendations: - Repeat colonoscopy in 10 years if patient in good health.
[2024-11-02 09:36] VITALS: BP 95/44; PULSE 55; RESP 16; O2SAT 97
[2024-11-02 09:41] VITALS: BP 105/53; PULSE 55; RESP 16; O2SAT 97
[2024-11-02 09:56] VITALS: BP 109/70; PULSE 63; RESP 16; TEMP 36.2; O2SAT 98
--- NOTE | 2024-11-02 10:24 | PC.NURSE ---
[facility]O. IN HOUSE AGENTS' RECORDS CLERK USED.
== END 2024-11-02 10:23 | disposition home or self-care (01) ==
PROVIDERS: PCP Internal Medicine; Visit Provider Internal Medicine
PROC: 0DJD8ZZ Inspection of Lower Intestinal Tract, Via Natural or Artificial Opening Endoscopic (ICD-10-PCS; CPT 45378; principal; 2024-11-02 08:20)
DX: Z12.11 Encounter for screening for malignant neoplasm of colon (principal); K64.8 Other hemorrhoids; K21.9 Gastro-esophageal reflux disease without esophagitis; E78.5 Hyperlipidemia, unspecified; E55.9 Vitamin D deficiency, unspecified; E03.9 Hypothyroidism, unspecified; M81.0 Age-related osteoporosis without current pathological fracture; M25.551 Pain in right hip; R25.2 Cramp and spasm; F33.0 Major depressive disorder, recurrent, mild; Z79.899 Other long term (current) drug therapy; Z88.6 Allergy status to analgesic agent; Z88.8 Allergy status to other drugs, medicaments and biological substances; Z98.890 Other specified postprocedural states; Z56.0 Unemployment, unspecified
CPT/HCPCS: G0121; J2003; J2704

== ENCOUNTER → 2024-11-02 06:29 | Outpatient (BNV) | payer OTHER, SELFPAY | PROVIDERS: PCP Internal Medicine; Visit Provider Internal Medicine | DX: Z12.11 Encounter for screening for malignant neoplasm of colon (principal); K64.8 Other hemorrhoids | CPT/HCPCS: G0121 ==

== ENCOUNTER 2025-03-12 14:57 | Emergency (ER) | payer OTHER, SELFPAY ==
[2025-03-12 15:18] VITALS: BP 126/65; PULSE 60; RESP 16; TEMP 36.8; O2SAT 98; BMI 21.9
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
--- OUTSIDE RECORDS SUMMARY | 2025-03-12 15:36 | XMS_ITS | Patient Health Record ---
Author Organization [facility] Address [address] [place] [address] Care Team Providers Care Director Of Social Work Name Role Phone Margarita Harris Primary Care Provider Unavailab Zack Crump Unavailable [phone] Johana Farmer Unavailable Unavailable Reason For Referral No Information Medications Medication SIG (Take, Route, Frequency, Duration) Notes Start Date End Date Status Levothyroxine Sodium Active Vitamin D Active Omeprazole Active Arthritis Pain Reliever Active Alendronate Sodium A ctive Amitriptyline HCl Ac tive Calcium 600 Active MiraLax (colon prep) 8.3 ounce ((238) grams mixed with Gatorade or Crystal Light orally begin at 5:00 p.m. the day before the procedure for 1 day 04/03/2017 Active Dulcolax (colon prep) 5 MG take at 3:00 p.m and 7:00p.m. Orally two tablets twice a day for one day for 1 day 04/03/2017 Active Social History Tobacco Use: Social History Observation Description Date Details (start date - stop date) Never Smoker NA - NA Tobacco Use/Smoking Question Answer Notes Patient is a nonsmoker Alcohol Screen Question Answer Notes Did you have a drink contain ing alcohol in the past year? Yes How often did you have a dri nk containing alcohol in the past year? Monthly or less (1 point) How many drinks did you have on a typical day when you were drinking in the past year? 1 or 2 drinks (0 point) How often did you have 6 or more drinks on one occasion in the past year? Never (0 point) Points 1 Interpretation Negative Section Notes: Nonsmoker; no sig alcohol Problems Problem Type SNOMED Code ICD Code Onset Dates Problem Status W/U Status Risk Notes Problem 64936716 Weight loss (R63.4) Active confirmed Problem 209058303 Abdominal pain, RLQ (R10.31) Active confirmed Problem 59936092 Iron deficiency anemia, unspecified iron deficiency anemia type (D50.9) Active confirmed Plan Of Treatment Pending Test Test Name Order Date GI BIOPSY 04/14/2017 Future Test Test Name Order Date UPPER GI ENDOSCOPY 04/03/2017 COLONOSCOPY 04/03/2017 Insurance Providers Payer Name Payer Address Payer Phone Subscriber Number Group Number Insured Name Patient Relationship to Insured Coverage Start Date Coverage End Date [facility] [address] [place] [phone] [id number] MARGARITA RASHID Self - patient is the insured Medical (General) History Medical History History ICD Code Hypothyroidism GERD Vitamin D deficiency Osteoarthritis Osteoporosis Osteopenia Fibromyalgia Carpal tunnel Denies [place],DM,CVA,Lung disease,renal dise ase Describes a negative colonoscopy in [place] [facility] in approx 2011 Surgical History Surgery Date(Month/Year) Hysterectomy and Bladder suspension Carpal tunnel release on the right Microdiscectomy on lower back
--- OUTSIDE RECORDS SUMMARY | 2025-03-12 15:36 | XMS_ITS | Encounter Summary ---
Author Organization [facility] Address [address] [place] [address] Care Team Providers Care Social Science Professor Name Role Phone Unavailable Primary Care Provider Unavailabl e Encounter Details Date Type Department Care Team (Latest Contact Info) Description 03/29/2019 Abstract C CONVERSIONS Dental, Provider, DDS Social History Tobacco [...]
--- OUTSIDE RECORDS SUMMARY | 2025-03-12 15:36 | XMS_ITS | Encounter Summary ---
Author Organization [facility] Address [address] [place] [address] Care Team Providers Care Rustic Fence Builder Name Role Phone Unavailable Primary Care Provider [...]
--- OUTSIDE RECORDS SUMMARY | 2025-03-12 15:36 | XMS_ITS | Clinical Summary ---
Author Organization [employer] [facility] Address [address] [place] [address] Care Team Providers Care Stem Maker Name Role Phone Unavailable Primary Care Provider [...] history exists COVID-19 Vaccine ( - season) 2025 Influenza Vaccine (#1) 2025 Dental X-Ray: Full Mouth 04/13/2025 04/12/2022, 12/0 [...] patient's age to complete this topic Meningococcal B Vaccine Aged Out No l onger eligible based on patient's age to complete [...]
--- OUTSIDE RECORDS SUMMARY | 2025-03-12 15:36 | XMS_ITS | Encounter Summary ---
Author Organization [facility] Address [address] [place] [address] Care Team Providers Care Cover Maker Name Role Phone Unavailable Primary Care Provider Unavailabl e Encounter Details Date Type Department Care Team (Late st Contact Info) Description 06/06/2022 Abstract [facility] [address] [place] [address] Yesica Kendrick [address] [place] [address] Social History Tobacco Use Types Packs/Day Years [...]
[2025-03-12] MEDS: Diphth,Pertus(ACell),Tet Adult 0.5 ML SYRINGE IM (16:12)
[2025-03-12 16:34] VITALS: BP 126/65; PULSE 60; RESP 16; TEMP 36.8; O2SAT 98
== END 2025-03-12 16:36 | disposition home or self-care (01) ==
PROVIDERS: Emergency Provider Emergency Medicine; PCP Internal Medicine
DX: T22.20XA Burn of second degree of shoulder and upper limb, except wrist and hand, unspecified site, initial encounter (principal); T25.221A Burn of second degree of right foot, initial encounter; X10.2XXA Contact with fats and cooking oils, initial encounter; Y93.G3 Activity, cooking and baking; Y92.9 Unspecified place or not applicable; Y99.9 Unspecified external cause status; Z23 Encounter for immunization
CPT/HCPCS: 90471; 90715; 99282; 99284

== ENCOUNTER 2025-04-01 09:17 | Outpatient (REF) | payer OTHER, SELFPAY ==
--- OUTSIDE RECORDS SUMMARY | 2025-04-01 09:49 | XMS_ITS | Patient Health Record ---
Author Organization [facility] Address [address] [place] [address] Care Team Providers Care Art Educator Name Role Phone Margarita Harris Primary Care Provider Unavailab Zack Crump Unavailable [phone] Johana Farmer Unavailable Unavailable Reason For Referral [...] at 5:00 p.m. the day before the procedure; Duration: 1 day 04/03/2017 Active Dulcolax (colon prep) 5 MG take at 3:00 p.m and 7:00p.m. Orally two tablets twice a day for one day; Duration: 1 day 04/03/2017 Active Social History Tobacco [...] Problem Status W/U Status Risk Notes Problem Weight loss (971577383) Weight loss (R63.4) Active confirmed Problem Right lower quadrant pain (989586907) Abdominal pain, RLQ (R10.31) Active confirmed Problem Iron deficiency anemia (57908169) Iron deficiency anemia, unspecified iron deficiency anemia type (D50.9) Active confirmed Plan Of Treatment Pending Test Test Name Order Date GI BIOPSY 04/14/2017 Future Test Test Name Order Date UPPER GI ENDOSCOPY 04/03/2017 COLONOSCOPY 04/03/2017 Insurance Providers Payer Name Payer Address Payer Phone Subscriber Number Group Number Insured Name Patient Relationship to Insured Coverage Start Date Coverage End Date [facility] [address] [facility] [place] [phone] [id number] MARGARITA RASHID Self - patient is the insured Medical (General) History Medical History History ICD Code Hypothyroidism GERD Vitamin D deficiency Osteoarthritis Osteoporosis Osteopenia Fibromyalgia Carpal tunnel Denies [place],DM,CVA,Lung disease,renal dise ase Describes a negative colonoscopy in [place] [facility] in approx 2011 Surgical History Surgery Date(Month/Year) Hysterectomy and Bladder suspension Carpal tunnel release on the right Microdiscectomy on lower back
[2025-04-01 10:33] LABS: Alanine Aminotransferase 15 U/L (0-31); Albumin Level 4.4 g/dL (3.5-5.0); Alkaline Phosphatase 64 U/L (39-117); Anion Gap 9 (12-20); Aspartate Amino Transferase 27 U/L (5-31); Blood Urea Nitrogen 21 mg/dL (9-16); Calcium 9.1 mg/dL (8.4-10.2); Carbon Dioxide 28 mmol/L (22-29); Chloride 107 mmol/L (96-108); Cholesterol 168 mg/dL (<200); Estimated Glomerular Filt Rate > 60; HDL Cholesterol 31 mg/dL (>40); Magnesium 2.3 mg/dL (1.6-2.6); Potassium 4.1 mmol/L (3.3-5.1); Sodium 140 mmol/L (135-145); Total Protein 7.0 g/dL (6.5-8.0); Triglycerides 113 mg/dL (<150)
[2025-04-01 10:55] LABS: Thyroid Stimulating Hormone 4.67 uIU/mL (0.32-4.0)
== END 2025-04-01 09:18 | disposition home or self-care (01) ==
LOC: HO.LAB 09:17
PROVIDERS: PCP Internal Medicine; Visit Provider Internal Medicine
DX: R25.2 Cramp and spasm (principal); M25.551 Pain in right hip; E03.9 Hypothyroidism, unspecified; E55.9 Vitamin D deficiency, unspecified; E78.5 Hyperlipidemia, unspecified
CPT/HCPCS: 36415; 80053; 80061; 82306; 83735; 84443

== ENCOUNTER 2025-04-11 09:30 | Outpatient (AMB) | payer OTHER, SELFPAY ==
--- NOTE | 2025-04-11 09:34 | A.OFFPC_ITS ---
Vital Signs 04/11/25 09:35 Height 5 ft 2 in Weight 120 lb 4 oz BMI 22.0 BP 110/60 Blood Pressure Location Lt brachial Position Sitting Pulse 73 Pulse Source Pulse Oximeter Temp 97.3 F Temp Source Temporal Artery Scan Pulse Oximetry (%) 98 Oxygen Delivery Method Room Air Intake Visit Reasons: Annual Exam Manager Gallery Required: No Accompanied by: Spouse Allergies ibuprofen Allergy (Intermediate, Verified 04/11/25 09:43) pruritus nitrofurantoin Allergy (Mild, Verified 04/11/25 09:43) pruritus gabapentin Adverse Reaction (Intermediate, Verified 04/11/25 09:43) loopiness Medication List - Last Reconciled 04/11/25 by Margarita Jimenez MD acetaminophen 1,000 mg (2 x 500 mg) PO Q6H PRN 30 days acetaminophen ER (Tylenol 8 Hour) 650 mg PO Q8H PRN amitriptyline 25 mg PO BEDTIME 90 days bacitracin 1 appl topical BID calcium carbonate 600 mg PO BID 90 days cholecalciferol (vitamin D3) 25 mcg PO DAILY 90 days levothyroxine 50 mcg PO DAILY 90 days loratadine (Allergy Relief (loratadine)) 10 mg PO DAILY PRN 90 days magnesium oxide 400 mg PO BEDTIME 90 days omeprazole 20 mg PO DAILY 90 days pravastatin 40 mg PO BEDTIME 90 days Tobacco use date assessed: 04/11/25 Fall risk assessment: 1 Fall in past year Last assessed Fall Risk: 04/11/25 Dental Screening Dental Screen Date: 04/11/25 Did you have a dental visit in the last 12 months?: No Did you have a dental problem in the last 6 months where you did not have access to dental care?: No Was dental information given to patient?: Patient has dentist HPI HPI Comments History of Present Illness Details The patient is a 74-year-old female presenting for her physical exam. Mammogram done this year was normal. DEXA scan done last year showed osteopenia next DEXA scan should be 2025. Colonoscopy done this year also. Will have PCV 20 vaccine today. Flu and COVID vaccine done this year the pharmacy. The patient has a history of osteopenia, diagnosed following a bone density scan in April of the previous year. She is currently managing this condition with calcium and vitamin D supplementation. The patient reports experiencing gastroesophageal reflux disease, with recent episodes of increased acidity despite taking omeprazole. A change in medication to pantoprazole was discussed to better manage her symptoms. The patient has a history of hypothyroidism, with recent laboratory results indicating a slight abnormality in thyroid function. Her levothyroxine dosage is being adjusted from 50 mcg to 75 mcg, with a follow-up test scheduled in six weeks. The patient reports episodes of chest pain, which occur while lying down and are described as a sharp sensation. An electrocardiogram has been ordered to further investigate these symptoms. [facility] Medical History (Updated 04/11/25 @ 09:51 by Margarita Jimenez MD) Left knee pain Medicare annual wellness visit, initial Mild recurrent major depression Dyslipidemia Skin lesion Insomnia Age-related osteoporosis without current pathological fracture Hypovitaminosis D GERD (gastroesophageal reflux disease) Hypothyroidism Surgical History History of lumbar surgery History of total abdominal hysterectomy Family History Father No problems noted. Mother Diabetes Chronic mental illness Alzheimers disease Paternal Aunt Cancer Family/Other FH: mental illness Social History Housing: Apartment Are you a primary career placement services counselor to a significant other at home: No Do you presently have visiting nurse or other home services: No Alcohol intake: current Alcohol intake frequency: a few times a month Alcohol type: wine Patient Tobacco Use Status: Never used Tobacco e-Cigarette/Vaping Use: Never Used Second Hand Smoke Exposure: No Advance Directives Date on File: 03/17/23 service: No Current occupational status: unemployed Cognitive needs: No Hearing needs: No Vision needs: No Female Reproductive History Menstrual Age of Menarche: 13 Questionnaire PHQ-9 Over the last 2 weeks, how often have you been bothered by any of the following problems? 1. Little interest or pleasure in doing things: not at all 2. Feeling down, depressed, or hopeless: several days 3. Trouble falling or staying asleep, or sleeping too much: more than half the days 4. Feeling tired or having little energy: several days 5. Poor appetite or overeating: several days 6. Feeling bad about yourself - or that you are a failure or have let yourself or your family down: not at all 7. Trouble concentrating on things, such as reading the newspaper or watching television: not at all 8. Moving or speaking so slowly that other people could have noticed. Or the opposite - being so fidgety or restless that you have been moving around a lot more than usual: not at all 9. Thoughts that you would be better off or of hurting yourself in some way: not at all Total score: 5 Depression Screening Interpretation: Positive Depression Screening Follow-up: Existing condition and Follow-up Visit Requested Depression Screening Done: Yes 42027 - PHQ-9 Billing: Yes Source: Developed by Drs. Zack Peñaloza, Gita Birch, Paulie Womack and colleagues, with an educational mark from [employer]. Thrive Questionnaire Date Thrive assessed: 10/06/24 I am a: Patient What is your living situation today?: I have a steady place to live Within the past 12 months, did the food you bought not last and you didn't have the money to get more?: Sometimes True Within the past 12 months, did you worry whether your food would run out before you got money to buy more?: Sometimes True Do you have trouble paying for medicines?: No Do you have trouble getting transportation to medical appointments?: No Do you have trouble paying your heating and electricity bill?: No Do you have trouble taking care of your child, family member or friend?: No Do you have trouble with day-to-day activities such as bathing, preparing meals, shopping, managing finances, etc.?: No Are you currently unemployed and looking for a job?: No Are you interested in more education?: I choose not to answer this question Please select the resources that you would like help with: None Currently or been in a relationship where the following occur: I choose not to answer THRIVE Score: 2 AUDIT C Alcohol Use Questionnaire (AUDIT-C) 1. How often do you have a drink containing alcohol?: Never 3. How often do you have six or more drinks on one occasion?: Never Total Score: 0 Score Reviewed/Action Taken: No FADIA-7 AMB Questionnaire FADIA-7 Date FADIA - 7 assessed: 10/06/24 Feeling nervous, anxious, or on edge: 1 = Several days Not being able to stop or control worryin = Several days Worrying too much about different things: 1 = Several days Trouble relaxin = Several days Being so restless that it is hard to sit still: 1 = Several days Becoming easily annoyed or irritable: 1 = Several days Feeling afraid as if something awful might happen: 0 = Not at all Total FADIA-7 score (0-4 normal; 5-9 mild; 10-14 moderate; 15-21 severe): 6 Source: Developed by Drs. Zack Peñaloza, Gita Birch, Paulie Womack and colleagues, with an educational mark from [employer]. FADIA-7 Assessment Billing FADIA-7 Assessment Tool: FADIA-7 Assessment 18806 Review of Systems Const All systems reviewed & are unremarkable except as noted in HPI and below Card Denies chest pain at rest, Denies chest pain with activity, Denies edema, Denies irregular heart rhythm, Denies claudication, Denies dyspnea, Denies dyspnea on exertion, Denies orthopnea, Denies paroxysmal nocturnal dyspnea and Denies slow heart rate Resp Denies cough, Denies dyspnea and Denies dyspnea on exertion GI Denies abdominal pain, Denies change in bowel habits, Denies excessive flatus, Denies nausea and Denies vomiting Physical exam (Primary Care) Vital Signs: Last Vital Signs Temp 97.3 F 04/11/25 09:35 Pulse 73 04/11/25 09:35 BP 110/60 04/11/25 09:35 Pulse Ox 98 04/11/25 09:35 Oxygen Delivery Method Room Air 04/11/25 09:35 BMI result Body Mass Index 22.0 Tobacco/Smoking Status: Tobacco use Status Tobacco use date assessed 04/11/25 04/11/25 09:38 Patient Tobacco Use Status Never used Tobacco 04/11/25 09:38 e-Cigarette/Vaping Use Never Used 04/11/25 09:38 PHQ-9: PHQ-9 Score PHQ-9: Total score 5 04/11/25 09:56 Depression Screening Interpretation: Positive Depression Screening Follow-up: Existing condition and Follow-up Visit Requested Thrive Assessment: Date of Thrive Assessment Date Thrive assessed 10/06/24 04/11/25 09:38 Currently or been in a relationship where the following occur: I choose not to answer Resp Effort & Inspection: normal respiratory effort Auscultation: clear to auscultation bilaterally Cardio Jugular venous distension: no JVD Rate: regular rate Rhythm: regular rhythm Heart sounds: S1 normal heart sound present and S2 normal heart sound present Extrem General: Yes full ROM Immunizations pneumoc 20-fernanda conj-dip cr(PF) 0.5 mL IM syringe Performing Provider: Margarita Jimenez MD Performing Location: [facility] Administered by: Samaria Cruz CMA on 04/11/25 09:57 Dose Route Admin Location Dispensed Lot Number Expiration Date NDC Superintendent Operations Division 0.5 mL IM Left Deltoid 0.5 mL [id number] 03/23/26 5438-9848-34 [employer] /[employer] Total Dispensed Waste 0.5 mL 0 % VIS Given Date VIS Provided VIS Publication Date 04/11/25 Single Vaccine 24 Eligibility Eligibility Date Funding Source Not [facility] Eligible 04/11/25 Private Coding Level of Care Code Est Pt Level 3 (36412) Est Pt Prev Care >65y(92911) Diagnoses Physical exam Z00.00 Gastroesophageal reflux disease, unspecified whether esophagitis present K21.9 Esophagitis presence: esophagitis presence not specified Osteopenia M85.80 Mild recurrent major depression F33.0 Additional Codes PHQ-9 - 92016 - PHQ-9 Billing: Yes ([id number]) FADIA-7 Assessment Billing - FADIA-7 Assessment Tool: FADIA-7 Assessment 30905 ([id number]) Time Spent (min) 30 Assessment & Plan Assessment & Plan (1) Physical exam: Code(s): Z00.00 - Encounter for general adult medical examination without abnormal findings Category: Medical (2) GERD (gastroesophageal reflux disease): Code(s): K21.9 - Gastro-esophageal reflux disease without esophagitis Category: Medical Qualifiers: Esophagitis presence: esophagitis presence not specified Qualified Code(s): K21.9 - Gastro-esophageal reflux disease without esophagitis (3) Osteopenia: Code(s): M85.80 - Other specified disorders of bone density and structure, unspecified site Category: Medical (4) Mild recurrent major depression: Code(s): F33.0 - Major depressive disorder, recurrent, mild Category: Medical Plan Plan 1. Physical exam Repeat in a year. DEXA for 2025. Mammogram for 2025. 2. Osteopenia The patient is managing osteopenia with calcium and vitamin D supplementation. A follow-up bone density scan is scheduled for 2025. 3. Gastroesophageal Reflux Disease The patient is experiencing increased acidity despite omeprazole. Pantoprazole has been prescribed to better manage symptoms. 4. Hypothyroidism The patient's thyroid function is slightly abnormal, necessitating an increase in levothyroxine dosage from 50 mcg to 75 mcg. A follow-up thyroid function test is planned in six weeks. 5. Chest Pain The patient reports chest pain occurring while lying down, described as sharp. An electrocardiogram has been ordered for further evaluation. Orders: Orders ECG 12 lead EKG Today R07.9 - Chest pain, unspecified Thyroid Stimulating Hormone 6 Weeks E03.9 - Hypothyroidism, unspecified Pneumococcal 20 Immunization Today Z23 - Encounter for immunization Medications: New zolpidem 5 mg PO BEDTIME 30 tabs 0RF 30 days levothyroxine (Levoxyl) 75 mcg PO DAILY 90 tabs 1RF 90 days Discontinued levothyroxine Discontinued Reason: Patient Completed Course 50 mcg PO DAILY 90 days 90 tabs 3RF amitriptyline Discontinued Reason: Patient Completed Course 25 mg PO BEDTIME 90 days 90 tabs 3RF
[2025-04-11 09:35] VITALS: BP 110/60; PULSE 73; TEMP 36.3; O2SAT 98; BMI 22.0
--- OUTSIDE RECORDS SUMMARY | 2025-04-11 10:41 | XMS_ITS | Clinical Summary ---
Author Organization [employer] Address [address] [facility] [address] [facility] [address] [place] [address] Care Team Providers Care Raised Printer Name Role Phone Unavailable Primary Care Provider [...]
--- OUTSIDE RECORDS SUMMARY | 2025-04-11 10:41 | XMS_ITS | Patient Health Record ---
Author Organization [facility] Address [address] [place] [address] Care Team Providers Care Practice Management Consultant Name Role Phone Margarita Harris Primary Care Provider Unavailab Zack Crump Unavailable [phone] Johana Farmer Unavailable Unavailable Reason For Referral [...] W/U Status Risk Notes Problem Weight loss (090578063) Weight loss (R63.4) Active confirmed Problem Right lower quadrant pain (149694254) Abdominal pain, RLQ (R10.31) Active confirmed Problem Iron deficiency anemia (80621015) Iron deficiency anemia, unspecified iron deficiency anemia type (D50.9) Active confirmed Plan Of Treatment Pending Test Test Name Order Date GI BIOPSY 04/14/2017 Future Test Test Name Order Date UPPER GI ENDOSCOPY 04/03/2017 COLONOSCOPY 04/03/2017 Insurance Providers Payer Name Payer Address Payer Phone Subscriber Number Group Number Insured Name Patient Relationship to Insured Coverage Start Date Coverage End Date [facility] [address] [facility] [place] [phone] [id number] MARGARITA RASHID Self - patient is the insured Medical (General) History Medical History History ICD Code Hypothyroidism GERD Vitamin D deficiency Osteoarthritis Osteoporosis Osteopenia Fibromyalgia Carpal tunnel Denies OH,DM,CVA,Lung disease,renal dise ase Describes a negative colonoscopy in [place] [facility] in approx 2011 Surgical History Surgery Date(Month/Year) Hysterectomy and Bladder suspension Carpal tunnel release on the right Microdiscectomy on lower back
--- OUTSIDE RECORDS SUMMARY | 2025-04-11 10:41 | XMS_ITS | Encounter Summary ---
Author Organization [employer] Address [address] [facility] [address] [place] [address] Care Team Providers Care Stone Crusher Operator Name Role Phone Unavailable Primary Care [...]
--- OUTSIDE RECORDS SUMMARY | 2025-04-11 10:41 | XMS_ITS | Encounter Summary ---
Author Organization [employer] Address [address] [facility] [address] [place] [address] Care Team Providers Care Acid Cutter Name Role Phone Unavailable Primary Care Provider [...]
--- OUTSIDE RECORDS SUMMARY | 2025-04-11 10:41 | XMS_ITS | Encounter Summary ---
Author Organization [employer] Address [address] [facility] [address] [place] [address] Care Team Providers Care Scalp Treatment Operator Name Role Phone Unavailable Primary Care Provider Unavailabl e Encounter Details Date Type Department Care Team (Late st Contact Info) Description 06/06/2022 Abstract [facility] [address] [place] [address] Yesica Kendrick [address] [place] [address] Social History Tobacco Use Types Packs/Day Years [...]
== END 2025-04-11 10:01 | disposition home or self-care (01) ==
LOC: HO.HMCH 09:31
PROVIDERS: PCP Internal Medicine; Visit Provider Internal Medicine
DX: Z00.00 Encounter for general adult medical examination without abnormal findings (principal); K21.9 Gastro-esophageal reflux disease without esophagitis; M85.80 Other specified disorders of bone density and structure, unspecified site; F33.0 Major depressive disorder, recurrent, mild; Z23 Encounter for immunization

== ENCOUNTER → 2025-04-11 09:30 | Outpatient (BNVA) | payer OTHER, SELFPAY | PROVIDERS: PCP Internal Medicine; Visit Provider Internal Medicine | DX: Z00.00 Encounter for general adult medical examination without abnormal findings (principal); Z23 Encounter for immunization; K21.9 Gastro-esophageal reflux disease without esophagitis; M85.80 Other specified disorders of bone density and structure, unspecified site; F33.0 Major depressive disorder, recurrent, mild; R07.9 Chest pain, unspecified; Z13.31 Encounter for screening for depression | CPT/HCPCS: 90471; 90677; 96127; 99212; 99397 ==